=== PATIENT | female | born 1960 | race Caucasian/White ===

== ENCOUNTER 2023-09-24 12:49 | Inpatient (IN) ==
--- NOTE | 2023-09-24 12:58 | ED Triage Note ---
Date of Service September 24, 2023 Provider in Triage Author: Kraig Florence History of Present Illness This patient was briefly evaluated while in triage. An abbreviated physical exam was performed. This patient is a 62-year-old Female who presents to the ED for evaluation of ongoing abdominal pain, back pain and numbness radiating into her left leg. The patient was seen by a spine surgeon last year for her back. Patient did not undergo any epidural steroid injections or therapy for her back. The patient reports that she was recently seen for possible diverticulitis. She was awaiting a colonoscopy study on 10/20/2023. Patient also reports some tingling of her face, with questionable history of Mnire's disease. Patient reports that she does get frequent coldness of her extremities. Patient denies any facial droop, drooling or difficulty with speech/swallowing. Patient reports that it feels like her face is "spastic". Physical Exam CONSTITUTIONAL: Healthy and well nourished. Alert and oriented X 3. GCS 15. HEENT: No facial droop or drooling. No conjunctival injection. RESPIRATORY: Clear to auscultation bilaterally with no wheezing, crackles, rhonchi or stridor. CARDIOVASCULAR: Regular rate and rhythm with no murmurs, rubs or gallops. GASTROINTESTINAL: Bowel sounds present in all quadrants. Patient has minimal tenderness to palpation of the left abdomen. MUSCULOSKELETAL: Full range of motion of all joints without discomfort. Equal handgrip bilaterally. Negative sitting left straight leg raise. INTEGUMENTARY: No rash or other significant dermatologic conditions noted. HEMATOLOGIC: No ecchymosis or petechiae. PSYCHIATRIC: Positive affect. NEUROLOGIC: Cranial nerves II-XII grossly intact. No focal neurologic deficits noted. No ataxia noted when walking from waiting room to triage. Initial orders for labs and / or imaging were placed and patient was placed in the waiting area until a bed is available. Please see further documentation for the full ED course.
[2023-09-24 14:02] LABS: Basophils # (auto) 0.12 K/uL (0.00-0.20); Basophils % (auto) 1.5 %; Eosinophils # (auto) 0.12 K/uL (0.00-0.50); Eosinophils % (auto) 1.5 %; Hemoglobin 16.4 g/dl (12.0-16.0); Immature Granulocytes # (auto) 0.02 K/uL (0.01-0.20); Immature Granulocytes % (auto) 0.2 %; Lymphocytes # (auto) 2.58 K/uL (1.20-3.40); Mean Corpuscular Hemoglobin 29.5 pg (25.0-34.0); Mean Corpuscular Hgb Conc 32.8 g/dL (32.0-36.0); Mean Corpuscular Volume 90.1 fL (80.0-100.0); Mean Platelet Volume 9.4 fL (9.4-12.4); Monocytes # (auto) 0.45 K/uL (0.11-0.59); Monocytes % (auto) 5.6 %; Neutrophils # (auto) 4.78 K/uL (1.40-6.50); Neutrophils % (auto) 59.2 %; Platelet Count 355 K/uL (130-400); RDW Coefficient of Variation 13.2 % (11.5-14.5); RDW Standard Deviation 43.8 fL (36.4-46.3); Red Blood Count 5.55 M/uL (4.20-5.40); White Blood Count 8.07 K/ul (4.8-10.8)
[2023-09-24 14:24] LABS: Troponin I High Sensitivity 4.9 pg/ml (0-14)
[2023-09-24 14:30] LABS: Prothrombin Time 10.8 Seconds (9.0-12.0)
[2023-09-24 14:33] LABS: Thyroid Stimulating Hormone 0.657 uIu/ml (0.300-4.500)
[2023-09-24 14:34] LABS: Albumin Globulin Ratio 1.4 (0.9-2); Albumin Level 4.5 gm/dl (3.4-5.0); Bilirubin,Total 0.6 mg/dl (0.2-1.0); Calcium 9.9 mg/dl (8.6-10.3); Creatinine Clr Calc Pharmacy 71.2 ml/min; Est GFR (African American) 90.3 ml/min; Est GFR (Non-African American) 77.9 ml/min; Globulin 3.3 gm/dl (2.5-4.0); Magnesium 2.2 mg/dl (1.7-2.4); Potassium 3.8 mmol/L (3.5-5.1); Total Protein 7.8 gm/dl (6.0-8.3)
--- NOTE | 2023-09-24 14:39 | XRay Report ---
XR chest 1V not portable CLINICAL HISTORY: weakness COMPARISON STUDY: Chest CT March 02, 2012. Chest radiograph June 28, 2013. FINDINGS: Lung volumes are normal. Lungs are clear. There is no pneumothorax or pleural effusion. Car diac size is normal. Mediastinal contours are normal. There is no evidence for pulmonary edema. IMPRESSION: No acute cardiopulmonary findings. ACT 112: Negative or not required by law. Electronically signed by: Rui Steven M.D. 09/24/2023 2:38 PM
--- NOTE | 2023-09-24 14:59 | CT Scan Report ---
CT head/brain wo con CLINICAL HISTORY: 62 years-old Female with L facial tingling. Acute stroke like symptoms TECHNIQUE: Multiple axial CT images of the head were obtained without contrast. A dose lowering tech nique was utilized adhering to the principles of ALARA. CT DOSE: 547.75 mGy.cm COMPARISON: Brain MRI 06/17/2020 FINDINGS: No acute intracranial hemorrhage, midline shift, intracranial mass, hydrocephalus, territorial ischem ia or abnormal extra-axial collection. Involutional changes. Mild white matter hypodensities are nons pecific and may represent early changes of chronic microvascular ischemic disease. The calvarium is intact. The paranasal sinuses, mastoid air cells, and middle ear cavities are clear . IMPRESSION: No acute intracranial abnormality identified. ACT 112: Negative or not required by law. The above report was generated using voice recognition software. It may contain grammatical, syntax o r spelling errors. Electronically signed by: Devin Heath M.D. 09/24/2023 2:57 PM
--- NOTE | 2023-09-24 16:15 | Emergency Department Note ---
History of Present Illness General Chief complaint: Back Injury/Pain Stated complaint: BACK PAINS, FACIAL AND LEG NUMBNESS Time Seen by Provider: 09/24/23 15:58 History of Present Illness Maximum Pain Intensity: 6 This is a 62-year-old female that presents to the emergency department via private vehicle accompanied by friend with complaint of "back pain, left leg cold, numb, facial numbness". The patient states that last evening around 10 PM she noted that the left leg was cold and then numb. It was not weak and still able to support her. She notes that when she warmed the leg, the numbness resolved. She also noted that today there was some numbness in the face initially on the left side described as a tightness that then was also on the right side. She does note intermittent fever/chills over the past few years. She also notes several years ago she had something similar on the left side of the face. She has never had the left leg symptoms that she experienced yesterday. She denies any leg symptoms at the present time. She notes that while in CT undergoing workup today she noted the tightening on the left side of face and right side of the face with numbness but that also has resolved. At the present time, there are no symptoms. She denies any chest pain or shortness of breath. Home Medications Medication Instructions Recorded Confirmed Type amlodipine 5 mg tablet 5 mg PO PM 05/12/19 09/24/23 History losartan 25 mg tablet 25 mg PO PM 12/07/22 09/24/23 History albuterol sulfate 90 mcg/actuation 2 puff inhalation Q4H PRN SOB 08/28/23 09/24/23 History aerosol inhaler dicyclomine 10 mg capsule 10 mg PO QID PRN abdominal pain 09/20/23 09/24/23 Rx #120 caps atorvastatin 20 mg tablet 20 mg PO PM 09/24/23 09/24/23 History calcium carbonate 200 mg PO QDL 09/24/23 09/24/23 History fluticasone propionate 50 2 spray intranasal HS 09/24/23 09/24/23 History mcg/actuation nasal spray,suspension Allergies Allergy/AdvReac Type Severity Reaction Status Date / Time doxycycline Allergy Unknown Unknown Unverified 09/24/23 20:03 latex Allergy Unknown Blister Verified 09/24/23 20:03 sulfamethoxazole Allergy Unknown Rash Unverified 09/24/23 20:03 [From Bactrim] trimethoprim [From Bactrim] Allergy Unknown Rash Unverified 09/24/23 20:03 amoxicillin Allergy Diarrhea Verified 09/24/23 20:03 Sulfa (Sulfonamide Allergy Rash Verified 09/24/23 20:03 Antibiotics) adhesive AdvReac Intermediate BLISTERS Verified 09/24/23 20:03 meperidine AdvReac Unknown N/V Verified 09/24/23 20:03 Past Med/Surg History Medical History (Updated 09/25/23 @ 03:55 by Irwin Ku PA-C) Degenerative disc disease CERVICAL AREA Osteoarthritis IBS (irritable bowel syndrome) Prediabetes DIET CONTROL Depression Anxiety Transient ischemic attack (TIA) JUST FOUND ON MRI BUT UNSURE OF WHEN THEY WOULD HAVE BEEN > MRI 8 YRS AGO Cardiac murmur NO ISSUES Hypertension Hyperlipidemia Chronic obstructive pulmonary disease NO INHALERS > LAST EXAC YRS AGO Surgical History History of cataract surgery Hx of lumpectomy LEFT History of dilatation and curettage Hx of fracture of leg WITH REPAIR > METAL PRESENT RIGHT LEG History of colonoscopy Hx of hernia repair History of cholecystectomy Family History Mother Hearing loss Hypertension Family/Other No problems noted. 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 Beliefs That Will Affect Care: None marital status: Single Current Living Situation: Family Current Living Situation Comment: Home with son current occupational status: retired How many Children do You have: 0 Feels Safe at Home: Yes Safety Concerns: Feels Safe At This Time Assistive Devices: Cane Review of Systems A total of 10 systems reviewed and were otherwise negative Physical Exam Vital Signs Vital Signs - 24 hr 09/24/23 12:52 09/24/23 15:00 09/24/23 19:18 Temperature 36.1 C L Temperature Source Temporal Artery Scan Pulse Rate 67 Pulse Rate [Left Finger] 77 50 L Pulse Rhythm [Left Finger] Regular Pulse Strength [Left Finger] Normal Respiratory Rate 15 18 17 Respiratory Effort / Characteristics Non-Labored Spontaneous Non-Labored Spontaneous Respiratory Depth Normal Normal Respiratory Pattern Regular Blood Pressure 178/120 H Blood Pressure [Left Arm] 166/89 H 161/82 H Blood Pressure Mean 139 Blood Pressure Mean [Left Arm] 114 108 Blood Pressure Position [Left Arm] Sitting Sitting Pulse Oximetry 96 98 98 Oxygen Delivery Method Room Air Room Air Sepsis Recent Fever Within 48 Hours No Sepsis New/Unexplained Change in Mental Status No Sepsis Action Taken by Nursing No Action Required 09/24/23 19:58 Temperature Temperature Source Pulse Rate Pulse Rate [Left Finger] Pulse Rhythm [Left Finger] Pulse Strength [Left Finger] Respiratory Rate Respiratory Effort / Characteristics Respiratory Depth Respiratory Pattern Blood Pressure Blood Pressure [Left Arm] Blood Pressure Mean Blood Pressure Mean [Left Arm] Blood Pressure Position [Left Arm] Pulse Oximetry Oxygen Delivery Method Room Air Sepsis Recent Fever Within 48 Hours Sepsis New/Unexplained Change in Mental Status Sepsis Action Taken by Nursing VITAL SIGNS - Vital signs and nursing notes were reviewed. Stable and afebrile. GENERAL -62-year-old female appearing her stated age who is in no acute distress. Communicates well with provider and answers questions appropriately. SKIN - Without rashes. No meningeal or petechial rash. Skin overlying the body is unremarkable. No rashes. HEAD - NC/AT. EYES - PERRL with EOMI bilaterally. Sclera anicteric. EARS - No deformities of external structures noted on gross examination bilaterally. NOSE - Midline and without cyanosis. No epistaxis or purulent drainage noted. MOUTH/OROPHARYNX - Without perioral cyanosis. Buccal mucosa pink and moist and without leukoplakia. Tongue midline with equal elevation of palate bilaterally. No tonsillar hypertrophy, erythema, or exudates noted. Fair dentition noted. No drooling, stridor, trismus, wheezing or tripoding. Normal phonation. NECK - Neck with FROM. No nuchal rigidity. LUNGS - Chest wall symmetric without accessory muscle use, intercostals retractions, or central cyanosis. Normal vesicular breath sounds CTA B/L. No wheezes, rales, or rhonchi appreciated. CARDIAC - RRR with S1/S2. No murmur, rubs, or gallops appreciated. ABDOMEN - Abdominal contour normal without pulsations or visible masses. BS normoactive all four quadrants. No tenderness, palpable masses, hepatosplenomegaly, or ascites noted. EXTREMITIES - No clubbing or peripheral cyanosis. No pretibial edema present. Left lower extremities are symmetric in temperature. Dorsalis pedis pulse is within normal limits bilaterally. +5/5 strength noted in UE/LE bilaterally. NEUROLOGIC - Cranial nerves II through XII grossly intact. Sensory intact to light touch throughout. Patellar reflexes +2/4. PSYCH - A&Ox3 and cooperates fully with examiner. Pt is very pleasant and interacts well with examiner. Course Administered Medications Amlodipine Besylate (Amlodipine Besylate 5 Mg Tab) 5 mg PO PM LIZ Stop: 10/24/23 23:43 Last Admin: 09/25/23 00:12 Dose: 5 mg Documented By: Atorvastatin Calcium (Atorvastatin 20 Mg Tab) 20 mg PO PM LIZ Stop: 10/24/23 23:43 Last Admin: 09/25/23 00:13 Dose: 20 mg Documented By: Heparin Sodium/Dextrose (Heparin Sodium/Dextrose) 25,000 units in 500 mls @ 23 mls/hr IV .[id number] LIZ; Protocol Stop: 10/24/23 20:59 Last Admin: 09/24/23 21:12 Dose: 1,150 units/hr, 23 mls/hr Documented By: TREVOR Co-signed By: Losartan Potassium (Losartan Potassium 25 Mg Tab) 25 mg PO PM LIZ Stop: 10/24/23 23:43 Last Admin: 09/25/23 00:13 Dose: 25 mg Documented By: Nicotine (Nicotine 14 Mg/24 Hr Patch) 14 mg TD HS LIZ Stop: 10/24/23 20:59 Last Admin: 09/24/23 21:15 Dose: 14 mg Documented By: TREVOR Discontinued Medications Diazepam (Diazepam 5 Mg/Ml 10ml Vial) 5 mg IV NOW STA Stop: 09/24/23 18:23 Last Admin: 09/24/23 18:37 Dose: 5 mg Documented By: ELIZABETH Heparin Sodium (Porcine) (Heparin Sod (Porcine) 1000 Unit/Ml) 5,000 units IV NOW ONE Stop: 09/24/23 20:56 Last Admin: 09/24/23 21:11 Dose: 5,000 units Documented By: TREVOR Co-signed By: Ioversol (Optiray 320 125ml) 115 ml IV ONCE ONE Stop: 09/24/23 20:49 Last Admin: 09/24/23 20:49 Dose: 115 ml Documented By: AURELIANO Medical Decision Making Laboratory Data 09/24/23 13:45 09/24/23 13:45 Lab Results 09/24/23 Range/Units 13:45 WBC 8.07 (4.8-10.8) K/ul RBC 5.55 H (4.20-5.40) M/uL Hgb 16.4 H (12.0-16.0) g/dl Hct 50.0 H (37.0-47.0) % MCV 90.1 (80.0-100.0) fL MCH 29.5 (25.0-34.0) pg MCHC 32.8 (32.0-36.0) g/dL RDW Std Deviation 43.8 (36.4-46.3) fL RDW Coeff of Faustino 13.2 (11.5-14.5) % Plt Count 355 (130-400) K/uL MPV 9.4 (9.4-12.4) fL Immature Gran % (Auto) 0.2 % Neut % (Auto) 59.2 % Lymph % (Auto) 32.0 % [place] % (Auto) 5.6 % Eos % (Auto) 1.5 % Baso % (Auto) 1.5 % Neut # (Auto) 4.78 (1.40-6.50) K/uL Lymph # (Auto) 2.58 (1.20-3.40) K/uL [place] # (Auto) 0.45 (0.11-0.59) K/uL Eos # (Auto) 0.12 (0.00-0.50) K/uL Baso # (Auto) 0.12 (0.00-0.20) K/uL Immature Gran # (Auto) 0.02 (0.01-0.20) K/uL PT 10.8 (9.0-12.0) Seconds INR 1.0 (0.9-1.1) Sodium 140 (136-145) mmol/L Potassium 3.8 (3.5-5.1) mmol/L Chloride 105 (98-107) mmol/L Carbon Dioxide 28 (21-32) mmol/L Anion Gap 7 (3-11) BUN 8 (6-23) mg/dl Creatinine 0.80 (0.6-1.2) mg/dl Est Cr Clr Drug Dosing 71.2 ml/min Est GFR ( Amer) 90.3 ml/min Est GFR (Non-Af Amer) 77.9 ml/min BUN/Creatinine Ratio 10.0 (10-20) Glucose 102 H (70-99(Fasting)) mg/dl Calcium 9.9 (8.6-10.3) mg/dl Magnesium 2.2 (1.7-2.4) mg/dl Total Bilirubin 0.6 (0.2-1.0) mg/dl AST 20 (13-39) U/L ALT 27 (7-52) U/L Alkaline Phosphatase 147 H (34-104) U/L Troponin I High Sens 4.9 (0-14) pg/ml Total Protein 7.8 (6.0-8.3) gm/dl Albumin 4.5 (3.4-5.0) gm/dl Globulin 3.3 (2.5-4.0) gm/dl Albumin/Globulin Ratio 1.4 (0.9-2) TSH 0.657 (0.300-4.500) uIu/ml Imaging Data Radiologist's Impression: Duplex Scan Lower Extremity Artery 09/24/23 16:10 US arterial duplex LE LT HISTORY: 62 years-old Female L leg numb and cold per patient acute pain and swelling of left lower leg COMPARISON: None TECHNIQUE: Multiple real-time sonographic images of the left lower extremity arterial structures were obtained assessing grayscale appearance, color and spectral flow FINDINGS: Atherosclerosis. Patent common femoral artery with triphasic waveforms. Patent profunda femoris artery. High-grade stenosis with near occlusion of the superficial femoral artery proximal to mid portions with blunted monophasic waveforms. Peak systolic velocities in the midportion of the vessel measures 22 cm/s. Additional blunted monophasic waveforms of the left lower leg. No flow identified within the dorsalis pedis artery. IMPRESSION: 1. Atherosclerosis with blunted monophasic waveforms as above. 2. No arterial flow identified within the dorsalis pedis artery. ACT 112: Negative or not required by law. The above report was generated using voice recognition software. It may contain grammatical, syntax or spelling errors. Electronically signed by: Devin Heath M.D. 09/24/2023 6:42 PM Lumbar Spine X-Ray 09/24/23 16:10 XR lumbar spine min 4V routine HISTORY: 62 years-old Female Low back pain acute low back pain COMPARISON: CT 08/28/2023 TECHNIQUE: 5 views of the lumbar spine FINDINGS: Cholecystectomy. Nonobstructive bowel gas pattern. No acute fracture, subluxation or endplate erosion. Mild multilevel intervertebral disc space narrowing and spondylotic spurring with moderate facet arthrosis. Atherosclerosis of the aorta. IMPRESSION: No acute fracture or subluxation. ACT 112: Negative or not required by law. The above report was generated using voice recognition software. It may contain grammatical, syntax or spelling errors. Electronically signed by: Devin Heath M.D. 09/24/2023 5:23 PM Brain MRI 09/24/23 17:19 MR brain wo con HISTORY: 62 years-old Female L leg numbness, facial numbness acute strokelike symptoms COMPARISON: Head CT of same day, brain MRI 06/17/2020 TECHNIQUE: Multiplanar multisequence MRI of the brain was obtained without IV contrast. FINDINGS: No restricted diffusion. Midline structures appear unremarkable. Degenerative changes of the imaged cervical spine. No acute intracranial hemorrhage, midline shift, abnormal extra-axial collection, hydrocephalus or intra-axial mass. Cerebral venous sinuses and major arterial flow voids appear patent. Skull, orbits and soft tissues are unremarkable. Unchanged appearance of the left maxillary bone. Prior bilateral lens repair. Scattered T2/FLAIR hyperintense foci again noted within the periventricular and subcortical white matter of the cerebral hemispheres. Stable dominant 12 mm T2 hyperintense focus in the left frontal lobe. There is new abnormal signal within the central susy. IMPRESSION: 1. No acute intracranial abnormality. No acute or subacute infarct. 2. Scattered T2/FLAIR hyperintense foci within the white matter of the cerebral hemispheres redemonstrated with new areas of increased signal within the central susy. Findings are suspicious for a demyelinating process such as multiple sclerosis. ACT 112: Negative or not required by law. The above report was generated using voice recognition software. It may contain grammatical, syntax or spelling errors. Electronically signed by: Devin Heath M.D. 09/24/2023 7:17 PM Aorta w/Runoff CTA 09/24/23 20:40 Exam(s): CTA ABDOMEN + PELVIS, CTA EXTREMITY LEFT LOWER, CTA EXTREMITY RIGHT LOWER IV Amt: OPTIRAY [id number] EXAM: CT Angiography Abdomen and Pelvis With Intravenous Contrast CLINICAL HISTORY: Reason for exam: concern for LLE arterial occlusion. TECHNIQUE: Axial computed tomographic angiography images of the abdomen and pelvis with intravenous contrast. CTDI is 19 mGy and DLP is 1495.3 mGy-cm. Automated exposure control was utilized for the study. A dose lowering technique was utilized adhering to the principles of ALARA. MIP reconstructed images were created and reviewed. COMPARISON: No relevant prior studies available. FINDINGS: VASCULATURE: Aorta: No acute findings. No abdominal aortic aneurysm. No dissection. Celiac trunk and mesenteric arteries: There is 70% stenosis seen in the region of the splenic artery from the aorta 50% stenosis seen at the region of the common hepatic artery from the aorta.. Patent superior mesenteric and inferior mesenteric arteries. Renal arteries: No acute findings. No occlusion or significant stenosis. Iliac arteries: No acute findings. No occlusion or significant stenosis. Lung bases: Unremarkable. No mass. No consolidation. ABDOMEN: Liver: Fatty liver. Gallbladder and bile ducts: Cholecystectomy. No ductal dilation. Pancreas: Unremarkable. No ductal dilation. No mass. Spleen: Unremarkable. No splenomegaly. Adrenals: Unremarkable. No mass. Kidneys and ureters: Unremarkable. No hydronephrosis. No solid mass. Stomach and bowel: Unremarkable. No obstruction. No mucosal thickening. PELVIS: Appendix: No findings to suggest acute appendicitis. Bladder: Unremarkable. No mass. Reproductive: Unremarkable as visualized. ABDOMEN and PELVIS: Intraperitoneal space: Unremarkable. No significant fluid collection. No free air. Bones/joints: No acute fracture. No dislocation. Soft tissues: Unremarkable. Lymph nodes: Unremarkable. No enlarged lymph nodes. IMPRESSION: No evidence of aortoiliac arterial occlusion. EXAM: CT Angiography of the Left Lower Extremity With Intravenous Contrast CLINICAL HISTORY: Reason for exam: concern for LLE arterial occlusion. TECHNIQUE: Axial computed tomographic angiography images of the left lower extremity with intravenous contrast. Automated exposure control was utilized for the study. A dose lowering technique was utilized adhering to the principles of ALARA. MIP reconstructed images were created and reviewed. COMPARISON: No relevant prior studies available. FINDINGS: VASCULATURE: Left femoral/popliteal arteries: Left superficial femoral artery is occluded. Left common femoral artery is patent. The left popliteal artery is reconstituted through collateral circulation. Left calf/foot arteries: No acute findings. No occlusion or significant stenosis. LOWER EXTREMITY: Bones/joints: No acute fracture. No dislocation. Soft tissues: Unremarkable. No abnormal contrast enhancement. IMPRESSION: Completely occluded left superficial femoral artery with reconstitution of the left popliteal artery through collateral circulation. 3 vessel runoff in the left leg EXAM: CT Angiography of the Right Lower Extremity With Intravenous Contrast CLINICAL HISTORY: Reason for exam: concern for LLE arterial occlusion. TECHNIQUE: Axial computed tomographic angiography images of the right lower extremity with intravenous contrast. Automated exposure control was utilized for the study. A dose lowering technique was utilized adhering to the principles of ALARA. MIP reconstructed images were created and reviewed. COMPARISON: No relevant prior studies available. FINDINGS: VASCULATURE: Right femoral/popliteal arteries: No acute findings. No occlusion or significant stenosis. Right calf/foot arteries: No acute findings. No occlusion or significant stenosis. LOWER EXTREMITY: Bones/joints: No acute fracture. No dislocation. Soft tissues: Unremarkable. No abnormal contrast enhancement. IMPRESSION: No arterial occlusion in the right lower extremity Electronically signed by: Evans Zapata MD 09/24/23 23:15 PM XR chest 1V not portable CLINICAL HISTORY: weakness COMPARISON STUDY: Chest CT March 02, 2012. Chest radiograph June 28, 2013. FINDINGS: Lung volumes are normal. Lungs are clear. There is no pneumothorax or pleural effusion. Cardiac size is normal. Mediastinal contours are normal. There is no evidence for pulmonary edema. IMPRESSION: No acute cardiopulmonary findings. ACT 112: Negative or not required by law. Electronically signed by: Rui Steven M.D. 09/24/2023 2:38 PM MDM Narrative Patient was seen and evaluated as above in room D03a. Review was performed of triage nursing notes and vital signs. I did review pertinent previous visits and patient history. After obtaining a thorough history and physical examination the above work up was performed. Patient presents to us today for evaluation of left leg numbness/cold sensation and then also left-sided facial numbness/tight sensation. This is intermittent. No symptoms at the present time. Options of care were discussed with the patient. Patient was seen during a period of elevated volume and acuity in the emergency department and already had some testing resulted. Labs reveal no leukocytosis. Minor elevation of hemoglobin at 16.4. Coags normal. No emergent metabolic disturbance. Glucose 102. Alk phos 147. TSH reveals euthyroid state. Troponin negative. Urinalysis negative. EKG: Per my interpretation EKG reveals sinus bradycardia rate of 58 bpm. QTc 429. QRS 88. No ST elevation. Lumbar spine x-ray was negative. Chest x-ray was negative. Left lower extremity Doppler study reveals atherosclerosis with blunted monophasic waveforms and no arterial flow identified within the dorsalis pedis artery. I will note that on my assessment there is a palpable left dorsalis pedis pulse and the left lower extremity is appropriately warm and symmetric in temperature to the right. Patient notes resolution of the left leg numbness and cold sensation at the present time. MRI of the brain was obtained following negative non con head cT but patient did require a mild anxiolytic therefore was given IV Valium. MRI revealing no acute abnormality however scattered T2/FLAIR hyperintense foci within the white matter of the cerebral hemispheres redemonstrated with new areas of increased signal within the central susy. Findings are suspicious for demyelinating process such as multiple sclerosis per radiologist. At this time with the patient's intermittent left leg subjective numbness/cold sensation in addition to his abnormal imaging today we will proceed with further evaluation and management in the inpatient setting. It is important note that upon multiple reassessments the patient's left leg continue to be appropriately warm and well-perfused. No evidence of acute emergent arterial compromise on my exam however further evaluation and management will be needed. Case discussed with the hospitalist service. Please refer to further documentation regarding her stay. Case was discussed with the attending physician. In the evaluation and treatment of this patient the following differential diagnoses were entertained: Arterial occlusion, CVA, TIA, demyelinating process, infection, among others. Impression & Plan Left leg numbness, Abnormal brain MRI, Facial paresthesia, Abnormal ultrasound of lower extremity Discharge Plan Visit Data Chief Complaint: Back Injury/Pain Stated Complaint: BACK PAINS, FACIAL AND LEG NUMBNESS ED Provider: Ravi Keith ED Midlevel Provider: Irwin Ku Discharge Problem: Left leg numbness, Abnormal brain MRI, Facial paresthesia, Abnormal ultrasound of lower extremity Patient Disposition: Admitted As Inpatient Condition: Good Discharge Instructions Interventions: ED Discharge Assessment Last Done: 09/24/23 23:44
--- NOTE | 2023-09-24 17:26 | XRay Report ---
XR lumbar spine min 4V routine HISTORY: 62 years-old Female Low back pain acute low back pain COMPARISON: CT 08/28/2023 TECHNIQUE: 5 views of the lumbar spine FINDINGS: Cholecystectomy. Nonobstructive bowel gas pattern. No acute fracture, subluxation or endplate erosion . Mild multilevel intervertebral disc space narrowing and spondylotic spurring with moderate facet ar throsis. Atherosclerosis of the aorta. IMPRESSION: No acute fracture or subluxation. ACT 112: Negative or not required by law. The above report was generated using voice recognition software. It may contain grammatical, syntax o r spelling errors. Electronically signed by: Devin Heath M.D. 09/24/2023 5:23 PM
[2023-09-24] MEDS: diazePAM 5 MG/ML 10ML VIAL IV STA (18:37)
--- NOTE | 2023-09-24 18:43 | Ultrasound Report ---
US arterial duplex LE LT HISTORY: 62 years-old Female L leg numb and cold per patient acute pain and swelling of left lower l eg COMPARISON: None TECHNIQUE: Multiple real-time sonographic images of the left lower extremity arterial structures were obtained assessing grayscale appearance, color and spectral flow FINDINGS: Atherosclerosis. Patent common femoral artery with triphasic waveforms. Patent profunda femoris arter y. High-grade stenosis with near occlusion of the superficial femoral artery proximal to mid portions with blunted monophasic waveforms. Peak systolic velocities in the midportion of the vessel measures 22 cm/s. Additional blunted monophasic waveforms of the left lower leg. No flow identified within th e dorsalis pedis artery. IMPRESSION: 1. Atherosclerosis with blunted monophasic waveforms as above. 2. No arterial flow identified within the dorsalis pedis artery. ACT 112: Negative or not required by law. The above report was generated using voice recognition software. It may contain grammatical, syntax o r spelling errors. Electronically signed by: Devin Heath M.D. 09/24/2023 6:42 PM
--- NOTE | 2023-09-24 19:19 | Magnetic Resonance Report ---
MR brain wo con HISTORY: 62 years-old Female L leg numbness, facial numbness acute strokelike symptoms COMPARISON: Head CT of same day, brain MRI 06/17/2020 TECHNIQUE: Multiplanar multisequence MRI of the brain was obtained without IV contrast. FINDINGS: No restricted diffusion. Midline structures appear unremarkable. Degenerative changes of the imaged c ervical spine. No acute intracranial hemorrhage, midline shift, abnormal extra-axial collection, hydr ocephalus or intra-axial mass. Cerebral venous sinuses and major arterial flow voids appear patent. Skull, orbits and soft tissues a re unremarkable. Unchanged appearance of the left maxillary bone. Prior bilateral lens repair. Scatte red T2/FLAIR hyperintense foci again noted within the periventricular and subcortical white matter of the cerebral hemispheres. Stable dominant 12 mm T2 hyperintense focus in the left frontal lobe. Ther e is new abnormal signal within the central susy. IMPRESSION: 1. No acute intracranial abnormality. No acute or subacute infarct. 2. Scattered T2/FLAIR hyperintense foci within the white matter of the cerebral hemispheres redemonst rated with new areas of increased signal within the central susy. Findings are suspicious for a demye linating process such as multiple sclerosis. ACT 112: Negative or not required by law. The above report was generated using voice recognition software. It may contain grammatical, syntax o r spelling errors. Electronically signed by: Devin Heath M.D. 09/24/2023 7:17 PM
--- NOTE | 2023-09-24 20:22 | History & Physical Report ---
Date of Service September 24, 2023 Assessment & Plan (1) Superficial femoral artery occlusion: Plan: -Admit to med/tele -Currently stable and asymptomatic at the time of admission -Experienced LLE paresthesias and cold sensation last night around 10pm which did not improve until ED arrival -LLE arterial duplex notes High-grade stenosis with near occlusion of the superficial femoral artery proximal to mid portions with blunted monophasic waveforms. -Patient's LLE is warm to the touch and without discoloration, but the LLE dorsalis pedis pulse is noticeably weaker compared to the RLE -Will start patient on a weight past heparin drip with bolus now -Will obtain stat CTA abdominal aorta w/run off for further evaluation -As patient's symptoms have currently resolved and she has an intact DP pulse, will place a routine vascular surgery consult at this time -If CTA findings are worrisome then would reach out to vascular surgery overnight -Continue heparin drip for DVT PPX -HH diet, NPO at midnight in case OR would be needed -Tylenol and morphine for pain -AM CBC, CMP, mag, PT/INR (2) Facial paresthesia: Plan: -Patient has been experiencing intermittent, BL facial paresthesias since last night at approximately 10 pm -No focal neuro defects on exam -CT of the head/brain wo con was read as negative for acute findings -MRI of the brain obtained in the ED was negative for acute intracranial abnormality but did show " Scattered T2/FLAIR hyperintense foci within the white matter of the cerebral hemispheres redemonstrated with new areas of increased signal within the central susy. Findings are suspicious for a demyelinating process such as multiple sclerosis.". -Symptoms have currently resolved -Patient had similar findings on MRI of the brain approximately 4 years ago -Will consult Neurology to evaluate while admitted but will hold treatment for now until they see her tomorrow (3) Hypertension: Plan: -Currently stable -Continue losartan and amlodipine (4) Hyperlipidemia: Plan: -Continue atorvastatin (5) Chronic obstructive pulmonary disease: Plan: -Currently stable on RA and with clear lung sounds -Incentive spirometry, flutter therapy -PRN albuterol ordered (6) Tobacco abuse: Plan: -Continue to stress cessation -Nicotine patch ordered Plan The patient was discussed with Dr. Cifuentes at the time of the admission History of Present Illness Chief Complaint: LLE paresthesias, BL facial numbness Primary Care Provider: Kam Long DO Diana is a 62 year old female with a PMH significant for HTN, hyperlipidemia, previous TIA, and aortic valve stenosis who presented to the [facility] ED on 09/24/23 with complaints of intermittent cold sensation of the LLE and intermittent BL facial paresthesias. She was noted to be hypertensive at 178/120 and bradycardic with HR in the 50's but otherwise stable. Labs including CBC, CMP, and TSH were unremarkable. Chest xray, xray of the lumbar spine, and CT of the head/brain wo con were read as negative for acute findings. Arterial US of the LLE was read as "1. Atherosclerosis with blunted monophasic waveforms as above. 2. No arterial flow identified within the dorsalis pedis artery.". MRI of the brain wo con was read as "1. No acute intracranial abnormality. No acute or subacute infarct. 2. Scattered T2/FLAIR hyperintense foci within the white matter of the cerebral hemispheres redemonstrated with new areas of increased signal within the central susy. Findings are suspicious for a demyelinating process such as multiple sclerosis.". Prior to admission the patient was given 5 mg IV Diazepam. At the time of the exam the patient was lying in bed in no acute distress. She states that she has had issues with what she describes as restless legs, left worse than right, for "years". She has been smoking cigarettes for 40 years, up until approximately 5 years ago she was smoking 2 PPD. Over the past 5 years she has been smoking 1/2 PPD. Last night she started to developed paresthesias and cold sensation in the LLE. This started around 10 pm while she was laying on the couch. She denies pain or weakness in the LLE when this occurred. This last for the entirety of the night but improved upon arrival to the ED. At the same time that her LLE symptoms began she experienced what felt like migraine like tension on the BL temples with associated intermittent paresthesias on the face. These symptoms have not been constant. She did notice them return for a short time when she was in the CT scanner earlier tonight. At the present time she is asymptomatic. She notes that she had an MRI of the brain approximately 4 years ago with some white matter abnormalities. She was seen by Neurology at least once for this but never followed up after. She denies recent chest pain, SOB, cough, changes in vision, hearing, taste, smell, abd pain, nausea, vomiting, diarrhea, dysuria, hematuria, melena, and recent trauma. She denies a hx of major bleeding. She is a full code and would want her Son to make decisions for her if she could not make them herself. Please refer to Dr. Cifuentes's attestation for any changes to the treatment plan Allergies Allergy/AdvReac Type Severity Reaction Status Date / Time doxycycline Allergy Unknown Unknown Unverified 09/24/23 20:03 latex Allergy Unknown Blister Verified 09/24/23 20:03 sulfamethoxazole Allergy Unknown Rash Unverified 09/24/23 20:03 [From Bactrim] trimethoprim [From Bactrim] Allergy Unknown Rash Unverified 09/24/23 20:03 amoxicillin Allergy Diarrhea Verified 09/24/23 20:03 Sulfa (Sulfonamide Allergy Rash Verified 09/24/23 20:03 Antibiotics) adhesive AdvReac Intermediate BLISTERS Verified 09/24/23 20:03 meperidine AdvReac Unknown N/V Verified 09/24/23 20:03 Home Medications Medication Instructions Recorded Confirmed Type amlodipine 5 mg tablet 5 mg PO PM 05/12/19 09/24/23 History losartan 25 mg tablet 25 mg PO PM 12/07/22 09/24/23 History albuterol sulfate 90 mcg/actuation 2 puff inhalation Q4H PRN SOB 08/28/23 09/24/23 History aerosol inhaler dicyclomine 10 mg capsule 10 mg PO QID PRN abdominal pain 09/20/23 09/24/23 Rx #120 caps atorvastatin 20 mg tablet 20 mg PO PM 09/24/23 09/24/23 History calcium carbonate 200 mg PO QDL 09/24/23 09/24/23 History fluticasone propionate 50 2 spray intranasal HS 09/24/23 09/24/23 History mcg/actuation nasal spray,suspension aspirin 81 mg tablet,delayed 81 mg PO DAILY #1 tab 09/25/23 Rx release Past Med/Surg History Medical History Degenerative disc disease CERVICAL AREA Osteoarthritis IBS (irritable bowel syndrome) Prediabetes DIET CONTROL Depression Anxiety Transient ischemic attack (TIA) JUST FOUND ON MRI BUT UNSURE OF WHEN THEY WOULD HAVE BEEN > MRI 8 YRS AGO Cardiac murmur NO ISSUES Hypertension Hyperlipidemia Chronic obstructive pulmonary disease NO INHALERS > LAST EXAC YRS AGO Surgical History History of cataract surgery Hx of lumpectomy LEFT History of dilatation and curettage Hx of fracture of leg WITH REPAIR > METAL PRESENT RIGHT LEG History of colonoscopy Hx of hernia repair History of cholecystectomy Family History Mother Hearing loss Hypertension Family/Other No problems noted. Father Hypertension Grandmother Cancer Aunt Cancer Other Asthma Heart disease No family history of allergies No family history of bleeding disorder Denies family history of Stroke Social History Smoking Status: Current every day smoker Tobacco Type: Cigarettes packs per day: 1; Cigarettes Per Day: 1/3 ppd; Second Hand Exposure: Yes; Do You Dip or Chew Tobacco: No; Hx Alcohol Use: No Hx Substance Use: No Preferred Language: Malagasy Communication Ability: Effective Price Economist Required: No Beliefs That Will Affect Care: None marital status: Single Current Living Situation: Family Current Living Situation Comment: Home with son current occupational status: retired How many Children do You have: 0 Feels Safe at Home: Yes Assistive Devices: Cane Physical Exam Physical Exam: Physical Exam: General: In no acute distress, stated age, chronically ill appearing but non- toxic HEENT: Normocephalic, atraumatic, no scleral icterus, pupils around round, symmetrical, and reactive to light, moist mucus membranes, trachea midline, no thyromegaly Chest/Pulm: No respiratory distress, symmetrical chest expansion, clear breath sounds throughout Cardiac: bradycardic rate, regular rhythm, no murmurs noted Abdomen: Negative for ascites and bruising, normoactive bowel sounds, soft, non-tender to palpation throughout Musculoskeletal: Symmetrical and without signs of acute trauma, upper and lower extremities with full ROM, no atrophy, spasticity, or flaccidity Extremities: Radial and BL LE posterior tibial pusles are intact and symmetrical >LLE DP pulse is faint compared to RLE DP pulse >BL LE's are currently warm to the touch Skin: Both lower extremities are pink in color and without signs of discoloration or mottling Neuro: Alert and oriented to person, place, month, year, and president, no focal defects, CN II-XII tested and intact, negative pronator drift and cerebellar testing BL, no tremors noted >Patient with intact and symmetrical sensation in the BL LE's Psych: No acute distress, calm and cooperative during the exam Results & Data Results & Data Vital Signs (Past 12 Hours) Vital Signs Temp Pulse Pulse Resp BP BP Pulse Ox 09/24/23 19:58 09/24/23 19:18 50 L 17 161/82 H 98 09/24/23 15:00 77 18 166/89 H 98 09/24/23 12:52 36.1 C L 67 15 178/120 H 96 O2 Del Method 09/24/23 19:58 Room Air 09/24/23 19:18 Room Air 09/24/23 15:00 09/24/23 12:52 Room Air Laboratory Results Abnormal lab results 09/24/23 Range/Units 13:45 RBC 5.55 H (4.20-5.40) M/uL Hgb 16.4 H (12.0-16.0) g/dl Hct 50.0 H (37.0-47.0) % Glucose 102 H (70-99(Fasting)) mg/dl Alkaline Phosphatase 147 H (34-104) U/L Diagnostic Findings Chest X-Ray 09/24/23 12:58 XR chest 1V not portable CLINICAL HISTORY: weakness COMPARISON STUDY: Chest CT March 02, 2012. Chest radiograph June 28, 2013. FINDINGS: Lung volumes are normal. Lungs are clear. There is no pneumothorax or pleural effusion. Cardiac size is normal. Mediastinal contours are normal. There is no evidence for pulmonary edema. IMPRESSION: No acute cardiopulmonary findings. ACT 112: Negative or not required by law. Electronically signed by: Rui Steven M.D. 09/24/2023 2:[address] 09/24/23 12:59 CT head/brain wo con CLINICAL HISTORY: 62 years-old Female with L facial tingling. Acute stroke like symptoms TECHNIQUE: Multiple axial CT images of the head were obtained without contrast. A dose lowering technique was utilized adhering to the principles of ALARA. CT DOSE: 547.75 mGy.cm COMPARISON: Brain MRI 06/17/2020 FINDINGS: No acute intracranial hemorrhage, midline shift, intracranial mass, hydrocephalus, territorial ischemia or abnormal extra-axial collection. Involutional changes. Mild white matter hypodensities are nonspecific and may represent early changes of chronic microvascular ischemic disease. The calvarium is intact. The paranasal sinuses, mastoid air cells, and middle ear cavities are clear. IMPRESSION: No acute intracranial abnormality identified. ACT 112: Negative or not required by law. The above report was generated using voice recognition software. It may contain grammatical, syntax or spelling errors. Electronically signed by: Devin Heath M.D. 09/24/2023 2:57 PM Duplex Scan Lower Extremity Artery 09/24/23 16:10 US arterial duplex LE LT HISTORY: 62 years-old Female L leg numb and cold per patient acute pain and swelling of left lower leg COMPARISON: None TECHNIQUE: Multiple real-time sonographic images of the left lower extremity arterial structures were obtained assessing grayscale appearance, color and spectral flow FINDINGS: Atherosclerosis. Patent common femoral artery with triphasic waveforms. Patent profunda femoris artery. High-grade stenosis with near occlusion of the superficial femoral artery proximal to mid portions with blunted monophasic waveforms. Peak systolic velocities in the midportion of the vessel measures 22 cm/s. Additional blunted monophasic waveforms of the left lower leg. No flow identified within the dorsalis pedis artery. IMPRESSION: 1. Atherosclerosis with blunted monophasic waveforms as above. 2. No arterial flow identified within the dorsalis pedis artery. ACT 112: Negative or not required by law. The above report was generated using voice recognition software. It may contain grammatical, syntax or spelling errors. Electronically signed by: Devin Heath M.D. 09/24/2023 6:42 PM Lumbar Spine X-Ray 09/24/23 16:10 XR lumbar spine min 4V routine HISTORY: 62 years-old Female Low back pain acute low back pain COMPARISON: CT 08/28/2023 TECHNIQUE: 5 views of the lumbar spine FINDINGS: Cholecystectomy. Nonobstructive bowel gas pattern. No acute fracture, subluxation or endplate erosion. Mild multilevel intervertebral disc space narrowing and spondylotic spurring with moderate facet arthrosis. Atherosclerosis of the aorta. IMPRESSION: No acute fracture or subluxation. ACT 112: Negative or not required by law. The above report was generated using voice recognition software. It may contain grammatical, syntax or spelling errors. Electronically signed by: Devin Heath M.D. 09/24/2023 5:23 PM Brain MRI 09/24/23 17:19 MR brain wo con HISTORY: 62 years-old Female L leg numbness, facial numbness acute strokelike symptoms COMPARISON: Head CT of same day, brain MRI 06/17/2020 TECHNIQUE: Multiplanar multisequence MRI of the brain was obtained without IV contrast. FINDINGS: No restricted diffusion. Midline structures appear unremarkable. Degenerative changes of the imaged cervical spine. No acute intracranial hemorrhage, midline shift, abnormal extra-axial collection, hydrocephalus or intra-axial mass. Cerebral venous sinuses and major arterial flow voids appear patent. Skull, orbits and soft tissues are unremarkable. Unchanged appearance of the left maxillary bone. Prior bilateral lens repair. Scattered T2/FLAIR hyperintense foci again noted within the periventricular and subcortical white matter of the cerebral hemispheres. Stable dominant 12 mm T2 hyperintense focus in the left frontal lobe. There is new abnormal signal within the central susy. IMPRESSION: 1. No acute intracranial abnormality. No acute or subacute infarct. 2. Scattered T2/FLAIR hyperintense foci within the white matter of the cerebral hemispheres redemonstrated with new areas of increased signal within the central susy. Findings are suspicious for a demyelinating process such as multiple sclerosis. ACT 112: Negative or not required by law. The above report was generated using voice recognition software. It may contain grammatical, syntax or spelling errors. Electronically signed by: Devin Heath M.D. 09/24/2023 7:17 PM ECG Additional Comments: Sinus bradycardia Otherwise normal ECG When compared with ECG of 07-DEC-2022 12:44, (unconfirmed) No significant change was found Code Status & VTE Plan Code Status Full code VTE Prophylaxis Plan VTE Prophylaxis will be ordered: Yes Supervising Physician Co-Signing Physician Notes Attending addendum: I have physically seen this patient, have supervised the ADOLPH's activities, and agree with the H&P unless as otherwise noted. Assessment and Plan: Superficial femoral artery occlusion- Left lower extremity paresthesias and cold sensation that began at 10 PM, and improved slightly for ED arrival Left lower extremity serial duplex with high-grade stenosis with near occlusion of the superficial femoral artery proximal to mid portions with blunted monophasic waveforms Starting weight-based heparin drip standard dosing with bolus Order CTA abdominal aorta with runoff Follow serial laboratories as noted Consult vascular surgery for the a.m. Facial paresthesias- CT head negative for acute findings MRI brain suspicious for demyelinating process such as multiple sclerosis due to increased signal within the central susy Consult to neurology Hypertension- Continuing losartan and amlodipine Hyperlipidemia- Continue atorvastatin Check a fasting blood panel hemoglobin A1c Tobacco abuse- Nicotine patch ordered Cessation counseling PG Care Time/CCT Total # of Minutes Spent Total Time Spent with Patient: Total time spent is greater than 50% in coordination of care (as documented) at patient's floor/unit and/or counseling patient: [place] [address] INT INP/OBS CARE 3/75MIN Patient Type New Medical Decision Making High Complexity Diagnoses Superficial femoral artery occlusion I70.209 Facial paresthesia R20.2 Hypertension I10 Hyperlipidemia E78.5 Chronic obstructive pulmonary disease J44.9 Tobacco abuse Z72.0
[2023-09-24] MEDS ORDERED: Heparin IV Adult Wt-Based Standard w/ INITIAL Bolus Protocol IV SCH (20:42)
[2023-09-24] MEDS ORDERED: ACETAMINOPHEN 325 MG TAB PO PRN (20:47)
[2023-09-24] MEDS ORDERED: MoRPHine SULFATE 2 MG/ML CARP IV PRN (20:47)
[2023-09-24] MEDS: OPTIRAY 320 125ml IV ONE (20:49)
[2023-09-24] MEDS: HEPARIN SOD (PORCINE) 1000 UNIT/ML IV ONE (21:11)
[2023-09-24] MEDS: HEPARIN SODIUM/DEXTROSE 25,000 UNITS/500 ML BAG IV SCH (21:12)
[2023-09-24] MEDS: NICOTINE 14 MG/24 HR PATCH TD SCH (21:15)
--- NOTE | 2023-09-24 23:17 | CT Scan Report ---
Exam(s): CTA ABDOMEN + PELVIS, CTA EXTREMITY LEFT LOWER, CTA EXTREMITY RIGHT LOWER IV Amt: OPTIRAY [id number] EXAM: CT Angiography Abdomen and Pelvis With Intravenous Contrast CLINICAL HISTORY: Reason for exam: concern for LLE arterial occlusion. TECHNIQUE: Axial computed tomographic angiography images of the abdomen and pelvis with intravenous contrast. CTDI is 19 mGy and DLP is 1495.3 mGy-cm. Automated exposure control was utilized for the study. A dose lowering technique was utilized adhering to the principles of ALARA. MIP reconstructed images were created and reviewed. COMPARISON: No relevant prior studies available. FINDINGS: VASCULATURE: Aorta: No acute findings. No abdominal aortic aneurysm. No dissection. Celiac trunk and mesenteric arteries: There is 70% stenosis seen in the region of the splenic artery from the aorta 50% stenosis seen at the region of the common hepatic artery from the aorta.. Patent superior mesenteric and inferior mesenteric arteries. Renal arteries: No acute findings. No occlusion or significant stenosis. Iliac arteries: No acute findings. No occlusion or significant stenosis. Lung bases: Unremarkable. No mass. No consolidation. ABDOMEN: Liver: Fatty liver. Gallbladder and bile ducts: Cholecystectomy. No ductal dilation. Pancreas: Unremarkable. No ductal dilation. No mass. Spleen: Unremarkable. No splenomegaly. Adrenals: Unremarkable. No mass. Kidneys and ureters: Unremarkable. No hydronephrosis. No solid mass. Stomach and bowel: Unremarkable. No obstruction. No mucosal thickening. PELVIS: Appendix: No findings to suggest acute appendicitis. Bladder: Unremarkable. No mass. Reproductive: Unremarkable as visualized. ABDOMEN and PELVIS: Intraperitoneal space: Unremarkable. No significant fluid collection. No free air. Bones/joints: No acute fracture. No dislocation. Soft tissues: Unremarkable. Lymph nodes: Unremarkable. No enlarged lymph nodes. IMPRESSION: No evidence of aortoiliac arterial occlusion. EXAM: CT Angiography of the Left Lower Extremity With Intravenous Contrast CLINICAL HISTORY: Reason for exam: concern for LLE arterial occlusion. TECHNIQUE: Axial computed tomographic angiography images of the left lower extremity with intravenous contrast. Automated exposure control was utilized for the study. A dose lowering technique was utilized adhering to the principles of ALARA. MIP reconstructed images were created and reviewed. COMPARISON: No relevant prior studies available. FINDINGS: VASCULATURE: Left femoral/popliteal arteries: Left superficial femoral artery is occluded. Left common femoral artery is patent. The left popliteal artery is reconstituted through collateral circulation. Left calf/foot arteries: No acute findings. No occlusion or significant stenosis. LOWER EXTREMITY: Bones/joints: No acute fracture. No dislocation. Soft tissues: Unremarkable. No abnormal contrast enhancement. IMPRESSION: Completely occluded left superficial femoral artery with reconstitution of the left popliteal artery through collateral circulation. 3 vessel runoff in the left leg EXAM: CT Angiography of the Right Lower Extremity With Intravenous Contrast CLINICAL HISTORY: Reason for exam: concern for LLE arterial occlusion. TECHNIQUE: Axial computed tomographic angiography images of the right lower extremity with intravenous contrast. Automated exposure control was utilized for the study. A dose lowering technique was utilized adhering to the principles of ALARA. MIP reconstructed images were created and reviewed. COMPARISON: No relevant prior studies available. FINDINGS: VASCULATURE: Right femoral/popliteal arteries: No acute findings. No occlusion or significant stenosis. Right calf/foot arteries: No acute findings. No occlusion or significant stenosis. LOWER EXTREMITY: Bones/joints: No acute fracture. No dislocation. Soft tissues: Unremarkable. No abnormal contrast enhancement. IMPRESSION: No arterial occlusion in the right lower extremity Electronically signed by: Evans Zapata MD 09/24/23 23:15 PM
[2023-09-24] MEDS ORDERED: ALBUTEROL HFA 8 GM INHALER INH PRN (23:44)
[2023-09-25] MEDS: amLODIPine BESYLATE 5 MG TAB PO SCH (00:12)
[2023-09-25] MEDS: LOSARTAN POTASSIUM 25 MG TAB PO SCH (00:13)
[2023-09-25] MEDS: ATORVASTATIN 20 MG TAB PO SCH (00:13)
[2023-09-25 02:05] LABS: Appearance Urine Clear (Clear); Bilirubin Urine Negative (Negative); Blood Urine Negative (Negative); Color Urine Yellow; Glucose Urine UA Negative (Negative); Ketones Urine Negative (Negative); Leukocyte Esterase Urine Negative (Negative); Nitrite Urine Negative (Negative); Protein Urine Negative (Negative); Specific Gravity Urine > 1.045 (1.000-1.030); Urobilinogen Urine Negative (Negative)
[2023-09-25 04:28] LABS: Eosinophils # (auto) 0.17 K/uL (0.00-0.50); Eosinophils % (auto) 1.7 %; Hematocrit (blood only) 43.5 % (37.0-47.0); Hemoglobin 14.1 g/dl (12.0-16.0); Immature Granulocytes # (auto) 0.02 K/uL (0.01-0.20); Immature Granulocytes % (auto) 0.2 %; Lymphocytes # (auto) 3.82 K/uL (1.20-3.40); Lymphocytes % (auto) 39.3 %; Mean Corpuscular Hemoglobin 29.1 pg (25.0-34.0); Mean Corpuscular Hgb Conc 32.4 g/dL (32.0-36.0); Mean Corpuscular Volume 89.9 fL (80.0-100.0); Mean Platelet Volume 9.5 fL (9.4-12.4); Monocytes # (auto) 0.62 K/uL (0.11-0.59); Monocytes % (auto) 6.4 %; Neutrophils # (auto) 4.99 K/uL (1.40-6.50); Neutrophils % (auto) 51.4 %; Platelet Count 293 K/uL (130-400); RDW Coefficient of Variation 13.2 % (11.5-14.5); RDW Standard Deviation 43.8 fL (36.4-46.3); Red Blood Count 4.84 M/uL (4.20-5.40); White Blood Count 9.72 K/ul (4.8-10.8)
[2023-09-25 04:43] LABS: Albumin Globulin Ratio 1.4 (0.9-2); Albumin Level 3.8 gm/dl (3.4-5.0); Bilirubin,Total 0.7 mg/dl (0.2-1.0); Calcium 9.1 mg/dl (8.6-10.3); Est GFR (African American) 93.1 ml/min; Est GFR (Non-African American) 80.3 ml/min; Globulin 2.8 gm/dl (2.5-4.0); Potassium 3.3 mmol/L (3.5-5.1); Total Protein 6.6 gm/dl (6.0-8.3)
[2023-09-25 04:55] LABS: ANTI-Xa, UFH(UnfractionatedHep 0.63 IU/ml (0.3-0.7); INR 1.1 (0.9-1.1); Prothrombin Time 11.5 Seconds (9.0-12.0)
--- NOTE | 2023-09-25 06:43 | Electrocardiogram Report ---
Test Reason : Blood Pressure : / mmHG Vent. Rate : 058 BPM Atrial Rate : 058 BPM P-R Int : 134 ms QRS Dur : 088 ms QT Int : 438 ms P-R-T Axes : 066 085 047 degrees QTc Int : 429 ms Sinus bradycardia Otherwise normal ECG When compared with ECG of 07-DEC-2022 12:44, No significant change was found Confirmed by Maurizio Raya ([id number]) on 09/25/2023 6:43:48 AM Referred By: Confirmed By:Maurizoi Raya
--- NOTE | 2023-09-25 10:05 | Consultation ---
Date of Consultation September 25, 2023 Assessment & Plan (1) Superficial femoral artery occlusion: This 62-year-old female was found to have a left superficial femoral artery occlusion. She does give a history of claudication at long distances which has been going on for some time. There is no evidence of any acute ischemia of the left lower extremity at this point on exam. No intervention is needed at this time. I did recommend that she should stop smoking due to both her Raynaud's and her peripheral vascular disease. I also placed her on 81 mg of aspirin daily. We will see her again in the office in 6 months for follow-up or sooner if her condition worsens. Thank you very much for letting us participate in the care of this patient. History of Present Illness Reason for Consultation: Left superficial femoral artery occlusion Attending Physician: Ramiro Swan MD History of Present Illness This is a 62-year-old female who presented to the emergency department complaining of increased coldness to the left lower extremity and foot. She claims that she cannot warm it up as she could on the right. She denies any pain in the foot at that time or the leg. She did say that her feet. Pale on both sides at that time. She does state that she has a history of Raynaud's. Denies any previous history of ulceration of the legs. She does claim that she the has claudication of her left calf when walking long distances. This has been going on for some time and has not changed. She denies any rest pain in the foot. She has denies any weakness in the left foot. Her other complaints consist of tingling in both sides of her face. She has hypertensive for many years. She does claim she is a borderline diabetic. She does smoke however she has cut down slightly over the last few months. Allergies Allergy/AdvReac Type Severity Reaction Status Date / Time doxycycline Allergy Unknown Unknown Unverified 09/24/23 20:03 latex Allergy Unknown Blister Verified 09/24/23 20:03 sulfamethoxazole Allergy Unknown Rash Unverified 09/24/23 20:03 [From Bactrim] trimethoprim [From Bactrim] Allergy Unknown Rash Unverified 09/24/23 20:03 amoxicillin Allergy Diarrhea Verified 09/24/23 20:03 Sulfa (Sulfonamide Allergy Rash Verified 09/24/23 20:03 Antibiotics) adhesive AdvReac Intermediate BLISTERS Verified 09/24/23 20:03 meperidine AdvReac Unknown N/V Verified 09/24/23 20:03 Home Medications Medication Instructions Recorded Confirmed Type amlodipine 5 mg tablet 5 mg PO PM 05/12/19 09/24/23 History losartan 25 mg tablet 25 mg PO PM 12/07/22 09/24/23 History albuterol sulfate 90 mcg/actuation 2 puff inhalation Q4H PRN SOB 08/28/23 09/24/23 History aerosol inhaler dicyclomine 10 mg capsule 10 mg PO QID PRN abdominal pain 09/20/23 09/24/23 Rx #120 caps atorvastatin 20 mg tablet 20 mg PO PM 09/24/23 09/24/23 History calcium carbonate 200 mg PO QDL 09/24/23 09/24/23 History fluticasone propionate 50 2 spray intranasal HS 09/24/23 09/24/23 History mcg/actuation nasal spray,suspension Patient History Medical History Degenerative disc disease CERVICAL AREA Osteoarthritis IBS (irritable bowel syndrome) Prediabetes DIET CONTROL Depression Anxiety Transient ischemic attack (TIA) JUST FOUND ON MRI BUT UNSURE OF WHEN THEY WOULD HAVE BEEN > MRI 8 YRS AGO Cardiac murmur NO ISSUES Hypertension Hyperlipidemia Chronic obstructive pulmonary disease NO INHALERS > LAST EXAC YRS AGO Surgical History History of cataract surgery Hx of lumpectomy LEFT History of dilatation and curettage Hx of fracture of leg WITH REPAIR > METAL PRESENT RIGHT LEG History of colonoscopy Hx of hernia repair History of cholecystectomy Family History Mother Hearing loss Hypertension Family/Other No problems noted. Father Hypertension Grandmother Cancer Aunt Cancer Other Asthma Heart disease No family history of allergies No family history of bleeding disorder Denies family history of Stroke Social History Smoking Status: Current every day smoker Tobacco Type: Cigarettes packs per day: 1; Cigarettes Per Day: 1/3 ppd; Second Hand Exposure: Yes; Do You Dip or Chew Tobacco: No; Hx Alcohol Use: No Hx Substance Use: No Preferred Language: French Communication Ability: Effective Stationary Fireman Required: No Beliefs That Will Affect Care: None marital status: Single Current Living Situation: Family Current Living Situation Comment: Home with son current occupational status: retired How many Children do You have: 0 Feels Safe at Home: Yes Safety Concerns: Feels Safe At This Time Assistive Devices: Cane Review of Systems Review of Systems: All systems reviewed & are unremarkable except as noted in HPI & below Physical Exam Constitutional: WD/WN, vitals as above Respiratory: normal respiratory effort; no respiratory distress Cardiovascular: RRR, no murmur, no edema Vessels: femoral pulses present (Bilateral); + posterior tibial pulses abnormal (Absent on the left) and + dorsalis pedis pulses abnormal (Absent on the left) Extremities: + abnormal capillary refill (Abnormal on the left) Gastrointestinal (Abdomen): Inspection/Auscultation: abdomen normal to inspection Percussion/Palpation: abdomen soft Skin: + pallor (Both feet appear pale.); no wo und (There is no ulcerations of the lower extremity) Neurologic: normal touch/pain/proprioception, CN's II-XI intact bilaterally and moves all extremities Psychiatric: Orientation: alert and oriented x 3 Results & Data Vital Signs (Past 12 Hours) Vital Signs Temp Pulse Pulse Resp BP Pulse Ox O2 Del Method 09/25/23 08:24 36.7 C 45 L 16 126/60 90 Room Air 09/25/23 07:34 56 L 09/25/23 07:23 Room Air 09/25/23 01:27 36.6 C 60 18 136/66 93 Room Air 09/24/23 22:54 45 L 18 133/72 97 Room Air
[2023-09-25] MEDS: ASPIRIN 81 MG CHEW PO SCH (10:23)
--- NOTE | 2023-09-25 11:24 | Neurology Consultation ---
Date of Consultation September 25, 2023 Assessment & Plan (1) Left leg numbness: History of Present Illness Attending Physician: Ramiro Swan MD History of Present Illness pt this morning feeling well. essentially resolved symptoms and face without numbness. pt is well known to neurology clinic, Dr. Kern's pt, for her known brain lesions. mri brain negative. vascular surgery without intervention at this point for her superficial femoral artery occlusion. admission HPI: Diana is a 62 year old female with a PMH significant for HTN, hyperlipidemia, previous TIA, and aortic valve stenosis who presented to the [facility] ED on 09/24/23 with complaints of intermittent cold sensation of the LLE and intermittent BL facial paresthesias. She was noted to be hypertensive at 178/120 and bradycardic with HR in the 50's but otherwise stable. Labs including CBC, CMP, and TSH were unremarkable. Chest xray, xray of the lumbar spine, and CT of the head/brain wo con were read as negative for acute findings. Arterial US of the LLE was read as "1. Atherosclerosis with blunted monophasic waveforms as above. 2. No arterial flow identified within the dorsalis pedis artery.". MRI of the brain wo con was read as "1. No acute intracranial abnormality. No acute or subacute infarct. 2. Scattered T2/FLAIR hyperintense foci within the white matter of the cerebral hemispheres redemonstrated with new areas of increased signal within the central susy. Findings are suspicious for a demyelinating process such as multiple sclerosis.". Prior to admission the patient was given 5 mg IV Diazepam. At the time of the exam the patient was lying in bed in no acute distress. She states that she has had issues with what she describes as restless legs, left worse than right, for "years". She has been smoking cigarettes for 40 years, up until approximately 5 years ago she was smoking 2 PPD. Over the past 5 years she has been smoking 1/2 PPD. Last night she started to developed paresthesias and cold sensation in the LLE. This started around 10 pm while she was laying on the couch. She denies pain or weakness in the LLE when this occurred. This last for the entirety of the night but improved upon arrival to the ED. At the same time that her LLE symptoms began she experienced what felt like migraine like tension on the BL temples with associated intermittent paresthesias on the face. These symptoms have not been constant. She did notice them return for a short time when she was in the CT scanner earlier tonight. At the present time she is asymptomatic. She notes that she had an MRI of the brain approximately 4 years ago with some white matter abnormalities. She was seen by Neurology at least once for this but never followed up after. She denies recent chest pain, SOB, cough, changes in vision, hearing, taste, smell, abd pain, nausea, vomiting, diarrhea, dysuria, hematuria, melena, and recent trauma. She denies a hx of major bleeding. She is a full code and would want her Son to make decisions for her if she could not make them herself. Allergies Allergy/AdvReac Type Severity Reaction Status Date / Time doxycycline Allergy Unknown Unknown Unverified 09/24/23 20:03 latex Allergy Unknown Blister Verified 09/24/23 20:03 sulfamethoxazole Allergy Unknown Rash Unverified 09/24/23 20:03 [From Bactrim] trimethoprim [From Bactrim] Allergy Unknown Rash Unverified 09/24/23 20:03 amoxicillin Allergy Diarrhea Verified 09/24/23 20:03 Sulfa (Sulfonamide Allergy Rash Verified 09/24/23 20:03 Antibiotics) adhesive AdvReac Intermediate BLISTERS Verified 09/24/23 20:03 meperidine AdvReac Unknown N/V Verified 09/24/23 20:03 Home Medications Medication Instructions Recorded Confirmed Type amlodipine 5 mg tablet 5 mg PO PM 05/12/19 09/24/23 History losartan 25 mg tablet 25 mg PO PM 12/07/22 09/24/23 History albuterol sulfate 90 mcg/actuation 2 puff inhalation Q4H PRN SOB 08/28/23 09/24/23 History aerosol inhaler dicyclomine 10 mg capsule 10 mg PO QID PRN abdominal pain 09/20/23 09/24/23 Rx #120 caps atorvastatin 20 mg tablet 20 mg PO PM 09/24/23 09/24/23 History calcium carbonate 200 mg PO QDL 09/24/23 09/24/23 History fluticasone propionate 50 2 spray intranasal HS 09/24/23 09/24/23 History mcg/actuation nasal spray,suspension Patient History Medical History Degenerative disc disease CERVICAL AREA Osteoarthritis IBS (irritable bowel syndrome) Prediabetes DIET CONTROL Depression Anxiety Transient ischemic attack (TIA) JUST FOUND ON MRI BUT UNSURE OF WHEN THEY WOULD HAVE BEEN > MRI 8 YRS AGO Cardiac murmur NO ISSUES Hypertension Hyperlipidemia Chronic obstructive pulmonary disease NO INHALERS > LAST EXAC YRS AGO Surgical History History of cataract surgery Hx of lumpectomy LEFT History of dilatation and curettage Hx of fracture of leg WITH REPAIR > METAL PRESENT RIGHT LEG History of colonoscopy Hx of hernia repair History of cholecystectomy Family History Mother Hearing loss Hypertension Family/Other No problems noted. Father Hypertension Grandmother Cancer Aunt Cancer Other Asthma Heart disease No family history of allergies No family history of bleeding disorder Denies family history of Stroke Social History Smoking Status: Current every day smoker Tobacco Type: Cigarettes packs per day: 1; Cigarettes Per Day: 1/3 ppd; Second Hand Exposure: Yes; Do You Dip or Chew Tobacco: No; Hx Alcohol Use: No Hx Substance Use: No Preferred Language: Georgian Communication Ability: Effective Cloud Architect Required: No Beliefs That Will Affect Care: None marital status: Single Current Living Situation: Family Current Living Situation Comment: Home with son current occupational status: retired How many Children do You have: 0 Feels Safe at Home: Yes Safety Concerns: Feels Safe At This Time Assistive Devices: Cane Exam (Neuro) Physical Exam: HEENT: normocephalic Neuro: Mental: AOx4, fluent speech, normal comprehension, no apraxia, no L/R confusion, no neglect CN: PERRL, Full EOM, symmetric face, intact sensation t/o face, midline T/U/P, 5/5 SCM/traps. Motor: No abnormal movements, normal tone and bulk, 5/5 t/o bilaterally Sens: intact to touch b/l grossly Coord: intact FNT b/l DTR: 2+ sym b/l Impression: 62 yo female with transient face numbness and left leg numbness in setting of superficial femoral artery occlusion. mri brain negative. pt well known to Dr. Kern, neurology clinic, for her mri findings. she wants to follow up with [facility] neurology in the future. Recommendations: routine f/u with [facility] neurology as pt desires. no need for further work up from neurology. mri reviewed and discussed with pt. pt can continue outpt follow up with [facility]. call agin if new question. Chart reviewed I have spent more than 50% educating patient about potential diagnosis and neurological evaluation and coordinating care with patient's treatment team. Total time spent (including chart review and coordination of care): 60 min (this includes chart review). Results & Data Vital Signs (Past 12 Hours) Vital Signs Temp Pulse Pulse Resp BP Pulse Ox O2 Del Method 09/25/23 11:03 36.7 C 53 L 18 145/69 H 97 Room Air 09/25/23 08:24 36.7 C 45 L 16 126/60 90 Room Air 09/25/23 07:34 56 L 09/25/23 07:23 Room Air 09/25/23 01:27 36.6 C 60 18 136/66 93 Room Air PG Care Time/CCT Total # of Minutes Spent Total Time Spent with Patient: Total time spent is greater than 50% in coordination of care (as documented) at patient's floor/unit and/or counseling patient: Coding Level of Care Code 88829 IN/OBS CONSULT LVL 4,60M Diagnoses Left leg numbness R20.0
--- NOTE | 2023-09-25 11:47 | Discharge Summary ---
Date of Service September 25, 2023 Admission HPI Per Admitting Provider Diana is a 62 year old female with a PMH significant for HTN, hyperlipidemia, previous TIA, and aortic valve stenosis who presented to the [facility] ED on 09/24/23 with complaints of intermittent cold sensation of the LLE and intermittent BL facial paresthesias. She was noted to be hypertensive at 178/120 and bradycardic with HR in the 50's but otherwise stable. Labs including CBC, CMP, and TSH were unremarkable. Chest xray, xray of the lumbar spine, and CT of the head/brain wo con were read as negative for acute findings. Arterial US of the LLE was read as "1. Atherosclerosis with blunted monophasic waveforms as above. 2. No arterial flow identified within the dorsalis pedis artery.". MRI of the brain wo con was read as "1. No acute intracranial abnormality. No acute or subacute infarct. 2. Scattered T2/FLAIR hyperintense foci within the white matter of the cerebral hemispheres redemonstrated with new areas of increased signal within the central susy. Findings are suspicious for a demyelinating process such as multiple sclerosis.". Prior to admission the patient was given 5 mg IV Diazepam. At the time of the exam the patient was lying in bed in no acute distress. She states that she has had issues with what she describes as restless legs, left worse than right, for "years". She has been smoking cigarettes for 40 years, up until approximately 5 years ago she was smoking 2 PPD. Over the past 5 years she has been smoking 1/2 PPD. Last night she started to developed paresthesias and cold sensation in the LLE. This started around 10 pm while she was laying on the couch. She denies pain or weakness in the LLE when this occurred. This last for the entirety of the night but improved upon arrival to the ED. At the same time that her LLE symptoms began she experienced what felt like migraine like tension on the BL temples with associated intermittent paresthesias on the face. These symptoms have not been constant. She did notice them return for a short time when she was in the CT scanner earlier tonight. At the present time she is asymptomatic. She notes that she had an MRI of the brain approximately 4 years ago with some white matter abnormalities. She was seen by Neurology at least once for this but never followed up after. She denies recent chest pain, SOB, cough, changes in vision, hearing, taste, smell, abd pain, nausea, vomiting, diarrhea, dysuria, hematuria, melena, and recent trauma. She denies a hx of major bleeding. She is a full code and would want her Son to make decisions for her if she could not make them herself. Please refer to Dr. Cifuentes's attestation for any changes to the treatment plan Principal Diagnosis Possible multiple sclerosis with left sided paresthesia, occluded left superficial femoral artery of undetermined age Discharge Exam General-alert and oriented x3, no fevers, no chills HEENT-head atraumatic and normocephalic, pupils equal and reactive to light, extraocular muscles intact Neck-no lymphadenopathy or thyromegaly, trachea midline Chest-clear to auscultation. No rales, wheezing or rhonchi Cardiac-regular rate and rhythm, normal S1 and S2 Abdomen-normal bowel sounds, nontender, no hepatosplenomegaly Extremities-no cyanosis, clubbing, or edema Neuro-cranial nerves II through XII intact, motor and sensory function within normal limits, strength symmetrical, no focal deficits Psych-normal affect, normal mood Discharge Data Allergies Allergy/AdvReac Type Severity Reaction Status Date / Time doxycycline Allergy Unknown Unknown Unverified 09/24/23 20:03 latex Allergy Unknown Blister Verified 09/24/23 20:03 sulfamethoxazole Allergy Unknown Rash Unverified 09/24/23 20:03 [From Bactrim] trimethoprim [From Bactrim] Allergy Unknown Rash Unverified 09/24/23 20:03 amoxicillin Allergy Diarrhea Verified 09/24/23 20:03 Sulfa (Sulfonamide Allergy Rash Verified 09/24/23 20:03 Antibiotics) adhesive AdvReac Intermediate BLISTERS Verified 09/24/23 20:03 meperidine AdvReac Unknown N/V Verified 09/24/23 20:03 Consultations 09/24/23 20:02 ED Decision to Admit Stat 09/24/23 20:50 Consult Neurology Routine Consult Vascular Surgery Routine Ordered Studies 09/24/23 12:59 CT head/brain wo con Stat 09/24/23 16:10 US arterial duplex LE LT Stat 09/24/23 17:19 MR brain wo con Stat 09/24/23 20:40 CTA abd aorta runof w con [CT ang AA runof w inc wo ifdon] Stat Hospital Course (1) Superficial femoral artery occlusion: Left side. Undetermined age. No indication for heparin drip at this time. Vascular surgery consultation appreciated. Outpatient follow-up recommended (2) Facial paresthesia: Including the left side of her body. This could be due to occult multiple sclerosis. Neurology consultation and recommendations appreciated. She is expecting to be referred to a neurologist elsewhere who is a specialist in MS. Brain MRI scan is fortunately negative for acute CVA (3) Hypertension: Stable. Continue current medical management (4) Hyperlipidemia: Stable. Continue atorvastatin (5) Chronic obstructive pulmonary disease: Stable. Continue current medical management (6) Tobacco abuse: Smoking cessation recommended Plan Home today, September 24 Total Time Total Time Spent Total Time Spent (In Minutes): 45-minute Discharge Plan Discharge Items Patient Disposition: Home - Self-Care Reason For Visit: SUPERFICIAL FEMORAL ARTERY OCCLUSION, POSSIBLE MS Discharge Diagnosis: Paresthesia, occluded left superficial femoral artery, possible MS Condition on Discharge: Good Activity: Resume your previous activity Non-emergency contact: Primary Care Provider Call non-emergency contact if: your symptoms worsen Follow-up/Referrals: Kam Long DO [Primary Care Provider] - Manny Todd MD [Physician] - (Call to make an appointment for follow up in 6 months or sooner if her cramping when walking worsens. ) Diet: Regular and Heart Healthy Addtl Attending Provider Instructions: Take aspirin 81 mg daily. Smoking cessation is recommended. Follow-up with PCP for referral to neurologist who is a specialist in MS Pending Studies at Discharge: No Stand-Alone Forms: My [facility] Problemsolutions24, Smoking Cessation Medications and DC Order Prescriptions: New aspirin 81 mg tablet,delayed release (DR/EC) 81 mg PO DAILY Qty: 1 0RF Continued losartan 25 mg tablet 25 mg PO PM dicyclomine 10 mg capsule 10 mg PO QID PRN (Reason: abdominal pain) Qty: 120 3RF amlodipine 5 mg Tablet 5 mg PO PM albuterol sulfate 90 mcg/actuation HFA aerosol inhaler 2 puff INHALATION Q4H PRN (Reason: SOB) atorvastatin 20 mg tablet 20 mg PO PM calcium carbonate [Gaviscon] 200 mg calcium (500 mg) Tablet,Chewable 200 mg PO QDL fluticasone propionate 50 mcg/actuation spray,suspension 2 spray INTRANASAL HS Discharge Orders: Discharge Order (Routine); Ordered 09/25/23 Ordered By: Ramiro Swan Admission Data Admit Date/Time: 09/24/23 20:46 Attending Provider: Ramiro Swan Admit Provider: Maulik Cifuentes Primary Care Provider: Kam Long Other Providers: Maulik Cifuentes; Pk Lemos; Manny Todd Coding Level of Care Code 69695 INP/OBS DISCH >30 MIN Diagnoses Superficial femoral artery occlusion I70.209 Facial paresthesia R20.2 Hypertension I10 Hyperlipidemia E78.5 Chronic obstructive pulmonary disease J44.9 Tobacco abuse Z72.0
--- NOTE | 2023-09-25 19:21 | Billing Data ---
Date of Service September 25, 2023 Coding Level of Care Code 68158 INT INP/OBS CARE MIN Comment already billled
== END 2023-09-25 12:58 | disposition home or self-care (01) | DRG 301 ==
LOC: ED 12:49 → EDINP 20:46 → SUATTDRO 20:46 → 2N 23:44

== ENCOUNTER 2024-07-30 15:38 | Inpatient (IN) ==
[2024-07-30 16:35] LABS: Basophils # (auto) 0.08 K/uL (0.00-0.20); Basophils % (auto) 1.5 %; Eosinophils # (auto) 0.05 K/uL (0.00-0.50); Hematocrit (blood only) 48.3 % (37.0-47.0); Hemoglobin 16.7 g/dl (12.0-16.0); Immature Granulocytes # (auto) 0.01 K/uL (0.01-0.20); Immature Granulocytes % (auto) 0.2 %; Lymphocytes # (auto) 1.56 K/uL (1.20-3.40); Lymphocytes % (auto) 30.1 %; Mean Corpuscular Hemoglobin 30.7 pg (25.0-34.0); Mean Corpuscular Hgb Conc 34.6 g/dL (32.0-36.0); Mean Corpuscular Volume 88.8 fL (80.0-100.0); Mean Platelet Volume 9.1 fL (9.4-12.4); Monocytes # (auto) 0.64 K/uL (0.11-0.59); Monocytes % (auto) 12.3 %; Neutrophils # (auto) 2.85 K/uL (1.40-6.50); Neutrophils % (auto) 54.9 %; Platelet Count 248 K/uL (130-400); RDW Coefficient of Variation 12.8 % (11.5-14.5); Red Blood Count 5.44 M/uL (4.20-5.40); White Blood Count 5.19 K/ul (4.8-10.8)
[2024-07-30 16:35] LABS: Base Excess VBG 4.6 mEq/L; HCO3 VBG 28 mmol/L; Oxygen Saturation VBG 77.9 %; PCO2 VBG 38 mmHg (38-50); PO2 VBG 45 mmHg; pH VBG 7.48 (7.36-7.41)
--- NOTE | 2024-07-30 16:35 | Emergency Department Note ---
Impression & Plan RSV infection, Acute dyspnea, Acute hypoxic respiratory failure ED Provider Note HISTORY OF PRESENT ILLNESS: Patient is a 63-year-old female presenting with shortness of breath. Patient reports that her son tested positive for RSV over a week ago. She reports that 6 days ago she started having a sore throat, congestion and a cough. Her symptoms have progressively worsened over the last 6 days. She states that the last 48 hours her shortness of breath and cough have been significantly worse. She has not taken any antipyretics today. She states she has had temperatures of 101 at home. She has used a few home albuterol inhaler from a previous illness, but states that this has not been helping. She denies wearing any supplemental oxygen at baseline. She reports a isolated history of a left lower extremity DVT, but no PE history. She is on a baby aspirin daily but no other anticoagulants. Denies any significant chest pain with her shortness of breath. She states that in the last 48 hours she feels like she cannot breathe or catch her breath. She states she feels lightheaded when she is up and walking and very winded. Patient denies any recent antibiotic or steroid use. ROS: as above PHYSICAL EXAM: Constitutional: Patient appears in no acute distress. HENT: Head: Normocephalic and atraumatic. Eyes: EOMI, PERRL Mouth/Throat: Mucous membranes moist. Neck: Trachea midline. Neck supple. Cardiovascular: RRR, No murmurs, rubs or gallops. Intact distal pulses. Pulmonary/Chest: No respiratory distress. Breath sounds clear and equal bilaterally. No wheezes or rales. On 2L NC Abdominal: Abdomen soft, no tenderness, rebound or guarding. Musculoskeletal: No edema, tenderness or deformity noted. Skin: Warm and dry. No rash, erythema, pallor or cyanosis Psychiatric: Appropriate mood and affect for situation. Neurological: Alert and keenly responsive. CN II-XII grossly intact, moving all extremities equally and fully. MDM: - Vitals signs showed Hypertension, tachycardia and hypoxia. Patient placed on 2 L nasal cannula with improvement in her saturations. - History obtained via patient. History as above. - Chronic conditions affecting care: depression; HTN; HLD; TIA - Differential diagnoses include, but are not limited to: Congestive heart failure; acute coronary syndrome; COPD/asthma exacerbation; pulmonary edema; pulmonary embolism; pneumonia; pneumothorax; viral syndrome - Order placed for continuous cardiac monitoring. At this time, monitor showed rate of 75 bpm with normal sinus rhythm, per my interpretation. - External medical records reviewed. Oncology/hematology consultation note dated 05/24/2024 was reviewed. Patient was referred due to concern for potential monoclonal gammopathy of uncertain significance (MGUS). Diagnosis was inconclusive and it was recommended to get some further laboratory testing and she was supposed to follow-up in about 3 weeks. - EKG interpreted by myself showed normal sinus rhythm. Rate 81 bpm. QT 372. No acute ischemic changes. Noted to have some T wave inversions and slight ST depressions in leads II, III and aVF. - Laboratory workup interpreted by myself showed normal WBC; normal PT/INR; stable electrolytes; normal troponin; normal BNP - VBG grossly unremarkable - Viral respiratory panel positive for RSV - CXR negative for pneumonia, per my interpretation. Radiology notes a possible groundglass symmetry in the medial right lung concerning for potential pneumonia. - Patient given 60 mg IV solumedrol and 20 mg IV pepcid in ER. - Discussion was had with case briefer about patient's case and need for admission - Hospitalist consulted for admission [facility] ASSESSMENT AND PLAN: Diagnosis: RSV infection; acute dyspnea; acute hypoxia Plan: admit Past Med/Surg History Problem List (Updated 07/30/24 @ 17:31 by Litzy Candelaria MD) Acute hypoxic respiratory failure (Acute) Acute dyspnea (Acute) RSV infection (Acute) Vertigo Vitamin B12 deficiency MGUS (monoclonal gammopathy of unknown significance) Lumbosacral radiculopathy Idiopathic polyneuropathy Internal hemorrhoid Gastritis Abnormal weight loss Abnormal CT of the abdomen Demyelinating disease recent brain MRI and is to have a lumbar puncture in the near future. Follows with Dr Kern Left leg numbness (Acute) Superficial femoral artery occlusion Facial paresthesia (Acute) Weight loss Abnormal computed tomography of cecum and terminal ileum Change in bowel habits Carpal tunnel syndrome of right wrist Abnormal ECG Atypical chest pain Other cervical disc degeneration at C5-C6 level Other cervical disc degeneration, unspecified cervical region Gait instability Meniere's disease of left ear Sensorineural hearing loss (SNHL) of left ear with restricted hearing of right ear Basilar migraine Cerebrovascular disease Abnormal brain MRI (Acute) Ocular migraine Dizziness and giddiness Sensorineural hearing loss (SNHL) Dysfunction of left eustachian tube Encounter for pre-operative examination URI (upper respiratory infection) (Acute) Irritable bowel syndrome (Chronic) Peripheral neuropathy Aortic valve stenosis hx of following with Dr Raya - and was discharged "free and clear" per patient Left carotid artery stenosis monitoring Depression Medical History Swine flu Sciatic leg pain Bipolar disorder Post traumatic stress disorder Tobacco abuse Degenerative disc disease Osteoarthritis IBS (irritable bowel syndrome) Prediabetes Anxiety Transient ischemic attack (TIA) Cardiac murmur Hypertension Hyperlipidemia Chronic obstructive pulmonary disease Surgical History S/P MAKENZIE-BSO History of cataract surgery Hx of lumpectomy History of dilatation and curettage Hx of fracture of leg History of colonoscopy Hx of hernia repair History of cholecystectomy Family History Mother Hearing loss Hypertension Family/Other No problems noted. Father Hypertension Grandmother Cancer Aunt Cancer Other Asthma Heart disease No family history of allergies No family history of bleeding disorder Denies family history of Stroke Social History Smoking Status: Current every day smoker Tobacco Type: Cigarettes packs per day: 1; Cigarettes Per Day: 1/2 ppd (advised on policy); Second Hand Exposure: Yes; Do You Dip or Chew Tobacco: No; Hx Alcohol Use: No Hx Substance Use: No Preferred Language: Telugu Communication Ability: Effective Rope Rider Required: No Beliefs That Will Affect Care: None marital status: Single Current Living Situation: Family Current Living Situation Comment: Home with son current occupational status: retired How many Children do You have: 0 Feels Safe at Home: Yes Assistive Devices: Cane, Denture - Upper and Denture - Lower Allergies Allergies Allergy/AdvReac Type Severity Reaction Status Date / Time amoxicillin Allergy Intermediate Diarrhea Verified 02/07/24 13:03 Sulfa (Sulfonamide Allergy Intermediate Rash Verified 02/07/24 13:03 Antibiotics) doxycycline Allergy Unknown Unknown Verified 02/07/24 13:03 latex Allergy Unknown Blister Verified 02/07/24 13:03 sulfamethoxazole Allergy Unknown Rash Verified 02/07/24 13:03 [From Bactrim] trimethoprim [From Bactrim] Allergy Unknown Rash Verified 02/07/24 13:03 adhesive AdvReac Intermediate BLISTERS Verified 02/07/24 13:03 meperidine AdvReac Unknown N/V Verified 02/07/24 13:03 Home Meds Home Medications Medication Instructions Recorded Confirmed amlodipine 5 mg tablet 5 mg PO HS 05/12/19 02/07/24 losartan 25 mg tablet 25 mg PO QAM 12/07/22 02/07/24 albuterol sulfate 90 mcg/actuation 2 puff inhalation Q4H PRN SOB 08/28/23 02/07/24 aerosol inhaler atorvastatin 20 mg tablet 20 mg PO HS 09/24/23 02/07/24 fluticasone propionate 50 2 spray intranasal HS PRN sinus 09/24/23 02/07/24 mcg/actuation nasal congestion spray,suspension diazepam 2 mg tablet 2 mg PO QAM PRN Anxiety 09/30/23 02/07/24 aspirin 81 mg tablet,delayed 81 mg PO QAM 10/06/23 02/07/24 release Previous Rx's Medication Instructions Recorded dicyclomine 10 mg capsule 10 mg PO QID PRN abdominal pain 09/20/23 #120 caps syringe with needle, safety 3 mL #10 ea 01/20/24 25 gauge x 1" (BD Integra Syringe) pantoprazole 40 mg tablet,delayed 40 mg PO BID #180 tabs 03/28/24 release cyanocobalamin (vitamin B-12) 1,000 mcg subcut .weekly #10 mL 06/27/24 1,000 mcg/mL injection solution ondansetron 4 mg disintegrating 4 mg PO Q6H #120 tabs 07/21/24 tablet Results & Data (ED) Vital Signs Vital Signs - 24 hr 07/30/24 15:50 07/30/24 16:11 07/30/24 16:15 Temperature 36.4 C L Temperature Source Oral Pulse Rate 92 H 89 Pulse Rate [Apical] Respiratory Rate 22 Respiratory Effort / Characteristics Spontaneous SOB on Exertion Respiratory Depth Normal Respiratory Pattern Regular Blood Pressure 160/83 H Blood Pressure [Left Arm] Blood Pressure Mean 108 Blood Pressure Mean [Left Arm] Pulse Oximetry 87 L 89 L Oxygen Delivery Method Room Air Room Air Oxygen Flow Rate Sepsis Recent Fever Within 48 Hours Yes Sepsis New/Unexplained Change in Mental Status No Sepsis Action Taken by Nursing No Action Required Oxygen Flow Rate - Titration 2 Pulse Oximetry Post Tiitration 94 07/30/24 16:15 07/30/24 16:15 Temperature Temperature Source Pulse Rate 75 Pulse Rate [Apical] 73 Respiratory Rate 24 22 Respiratory Effort / Characteristics Non-Labored Respiratory Depth Normal Respiratory Pattern Blood Pressure Blood Pressure [Left Arm] 144/92 H Blood Pressure Mean Blood Pressure Mean [Left Arm] 109 Pulse Oximetry 94 93 Oxygen Delivery Method Nasal Cannula Nasal Cannula Oxygen Flow Rate 2 2 Sepsis Recent Fever Within 48 Hours Sepsis New/Unexplained Change in Mental Status Sepsis Action Taken by Nursing Oxygen Flow Rate - Titration Pulse Oximetry Post Tiitration Laboratory Data 07/30/24 16:12 07/30/24 16:12 Lab Results 07/30/24 07/30/24 07/30/24 Range/Units 16:08 16:12 16:25 WBC 5.19 (4.8-10.8) K/ul RBC 5.44 H (4.20-5.40) M/uL Hgb 16.7 H (12.0-16.0) g/dl Hct 48.3 H (37.0-47.0) % MCV 88.8 (80.0-100.0) fL MCH 30.7 (25.0-34.0) pg MCHC 34.6 (32.0-36.0) g/dL RDW Std Deviation 42.0 (36.4-46.3) fL RDW Coeff of Faustino 12.8 (11.5-14.5) % Plt Count 248 (130-400) K/uL MPV 9.1 L (9.4-12.4) fL Immature Gran % (Auto) 0.2 % Neut % (Auto) 54.9 % Lymph % (Auto) 30.1 % [place] % (Auto) 12.3 % Eos % (Auto) 1.0 % Baso % (Auto) 1.5 % Neut # (Auto) 2.85 (1.40-6.50) K/uL Lymph # (Auto) 1.56 (1.20-3.40) K/uL [place] # (Auto) 0.64 H (0.11-0.59) K/uL Eos # (Auto) 0.05 (0.00-0.50) K/uL Baso # (Auto) 0.08 (0.00-0.20) K/uL Immature Gran # (Auto) 0.01 (0.01-0.20) K/uL PT 10.9 (9.0-12.0) Seconds INR 1.0 (0.9-1.1) VBG pH 7.48 H (7.36-7.41) VBG pCO2 38 (38-50) mmHg VBG pO2 45 mmHg VBG HCO3 28 mmol/L VBG O2 Saturation 77.9 % VBG Base Excess 4.6 mEq/L Sodium 138 (136-145) mmol/L Potassium 3.5 (3.5-5.1) mmol/L Chloride 105 (98-107) mmol/L Carbon Dioxide 25 (21-32) mmol/L Anion Gap 8 (3-11) BUN 10 (6-23) mg/dl Creatinine 0.88 (0.6-1.2) mg/dl Est Cr Clr Drug Dosing 55.0 ml/min eGFR 72.89 BUN/Creatinine Ratio 11.4 (10-20) Glucose 113 H (70-99(Fasting)) mg/dl Calcium 9.5 (8.6-10.3) mg/dl Magnesium 2.0 (1.7-2.4) mg/dl Total Bilirubin 0.6 (0.2-1.0) mg/dl AST 16 (13-39) U/L ALT 18 (7-52) U/L Alkaline Phosphatase 144 H (34-104) U/L Troponin I High Sens 6.3 (0-14) pg/ml B-Natriuretic Peptide 23 (0-100) pg/ml Total Protein 7.6 (6.0-8.3) gm/dl Albumin 4.4 (3.4-5.0) gm/dl Globulin 3.2 (2.5-4.0) gm/dl Albumin/Globulin Ratio 1.4 (0.9-2) Adenovirus (PCR) Not Detected (NotDetected) B. pertussis DNA (PCR) Not Detected (NotDetected) B.parapertussis DNA PCR Not Detected (NotDetected) C. pneumoniae DNA (PCR) Not Detected (NotDetected) Coronavirus OC43 (PCR) Not Detected (NotDetected) Coronavirus HKU1 (PCR) Not Detected (NotDetected) Coronavirus 229E (PCR) Not Detected (NotDetected) SARS-CoV-2 (PCR) Not Detected (NotDetected) Coronavirus NL63 (PCR) Not Detected (NotDetected) Human Metapneumovir PCR Not Detected (NotDetected) Influenza Type A (PCR) Not Detected (NotDetected) Influenza Type B (PCR) Not Detected (NotDetected) M. pneumoniae (PCR) Not Detected (NotDetected) Parainfluenza 1 (PCR) Not Detected (NotDetected) Parainfluenza 2 (PCR) Not Detected (NotDetected) Parainfluenza 3 (PCR) Not Detected (NotDetected) Parainfluenza 4 (PCR) Not Detected (NotDetected) RSV (PCR) DETECTED A (NotDetected) Entero/Rhino (PCR) Not Detected (NotDetected) Imaging Data Radiologist's Impression: Chest X-Ray 07/30/24 16:00 EXAM: Radiograph of the Chest 1 View INDICATION: Shortness of breath. TECHNIQUE: Frontal view of the chest. COMPARISON: CT chest 06/25/2024 and chest radiograph 09/24/2023 FINDINGS: Lungs and pleural spaces: Slight increased density noted in the medial right lung base may reflect a groundglass infiltrate. No pleural effusion or pneumothorax. Heart: Shape and configuration within normal limits allowing for technique. Mediastinum: Normal contour. Bones/joints: No fracture, erosion or dislocation. Soft tissues: No abnormality noted. No radiopaque foreign body noted. Upper abdomen: No abnormality noted. IMPRESSION: Possible groundglass infiltrate in the medial right lung base. Pneumonia not excluded. ACT 112: Negative or not required by law. Electronically signed by Aislinn Soares 07-30-2024 4:40 PM Discharge Plan Visit Data Chief Complaint: Shortness of Breath/Dyspnea Stated Complaint: SOB, COUGH, STUFFY NOSE, FEVER, EXPOSED TO RSV ED Provider: Litzy Candelaria Discharge Problem: RSV infection, Acute dyspnea, Acute hypoxic respiratory failure Forms Stand Alone Forms: [facility] [employer] Prescriptions Prescriptions: No Action pantoprazole 40 mg tablet,delayed release (DR/EC) 40 mg PO BID Qty: 180 3RF cyanocobalamin (vitamin B-12) 1,000 mcg/mL solution 1,000 mcg subcut .weekly Qty: 10 1RF Rx Instructions: 1 injection/week for 8 weeks, followed by 1 injection/month ondansetron 4 mg tablet,disintegrating 4 mg PO Q6H Qty: 120 0RF losartan 25 mg tablet 25 mg PO QAM dicyclomine 10 mg capsule 10 mg PO QID PRN (Reason: abdominal pain) Qty: 120 3RF diazepam 2 mg tablet 2 mg PO QAM PRN (Reason: Anxiety) (DME) BD Integra Syringe 3 mL 25 gauge x 1" syringe See Rx Instructions .Route Qty: 10 3RF Rx Instructions: As directed amlodipine 5 mg Tablet 5 mg PO HS albuterol sulfate 90 mcg/actuation HFA aerosol inhaler 2 puff INHALATION Q4H PRN (Reason: SOB) aspirin 81 mg tablet,delayed release (DR/EC) 81 mg PO QAM atorvastatin 20 mg tablet 20 mg PO HS fluticasone propionate 50 mcg/actuation spray,suspension 2 spray INTRANASAL HS PRN (Reason: sinus congestion) Referrals Referrals: Kimi Sullivan DO [Primary Care Provider] -
--- NOTE | 2024-07-30 16:41 | XRay Report ---
EXAM: Radiograph of the Chest 1 View INDICATION: Shortness of breath. TECHNIQUE: Frontal view of the chest. COMPARISON: CT chest 06/25/2024 and chest radiograph 09/24/2023 FINDINGS: Lungs and pleural spaces: Slight increased density noted in the medial right lung base may reflect a groundglass infiltrate. No pleural effusion or pneumothorax. Heart: Shape and configuration within normal limits allowing for technique. Mediastinum: Normal contour. Bones/joints: No fracture, erosion or dislocation. Soft tissues: No abnormality noted. No radiopaque foreign body noted. Upper abdomen: No abnormality noted. IMPRESSION: Possible groundglass infiltrate in the medial right lung base. Pneumonia not excluded. ACT 112: Negative or not required by law. Electronically signed by Aislinn Soares 07-30-2024 4:40 PM
[2024-07-30 16:53] LABS: Albumin Globulin Ratio 1.4 (0.9-2); Albumin Level 4.4 gm/dl (3.4-5.0); BUN Creatinine Ratio 11.4 (10-20); Bilirubin,Total 0.6 mg/dl (0.2-1.0); Calcium 9.5 mg/dl (8.6-10.3); Globulin 3.2 gm/dl (2.5-4.0); Potassium 3.5 mmol/L (3.5-5.1); Total Protein 7.6 gm/dl (6.0-8.3)
[2024-07-30 16:59] LABS: Troponin I High Sensitivity 6.3 pg/ml (0-14)
[2024-07-30 17:02] LABS: Prothrombin Time 10.9 Seconds (9.0-12.0)
[2024-07-30 17:24] LABS: Adenovirus PCR Not Detected (NotDetected); Bordetella parapertussis PCR Not Detected (NotDetected); Bordetella pertussis PCR Not Detected (NotDetected); Chlamydia pneumoniae PCR Not Detected (NotDetected); Coronavirus 229E PCR Not Detected (NotDetected); Coronavirus CoV-2 (COVID19)PCR Not Detected (NotDetected); Coronavirus HKU1 PCR Not Detected (NotDetected); Coronavirus NL63 PCR Not Detected (NotDetected); Coronavirus OC43PCR Not Detected (NotDetected); Human Metapneumovirus PCR Not Detected (NotDetected); Influenza A PCR Not Detected (NotDetected); Influenza B PCR Not Detected (NotDetected); Mycoplasma pneumoniae PCR Not Detected (NotDetected); Parainfluenza Virus 1 PCR Not Detected (NotDetected); Parainfluenza Virus 2 PCR Not Detected (NotDetected); Parainfluenza Virus 3 PCR Not Detected (NotDetected); Parainfluenza Virus 4 PCR Not Detected (NotDetected); Respiratory Syncytial VirusPCR DETECTED (NotDetected); Rhinovirus/Enterovirus PCR Not Detected (NotDetected)
[2024-07-30] MEDS: methylPREDNISolone 125 MG/2 ML VIAL IV STA (17:50)
[2024-07-30] MEDS: FAMOTIDINE 20MG IV PUSH 20 MG/5 ML SYR IV STA (17:51)
[2024-07-30] MEDS: ALBUT/IPRATROP 3MG/0.5MG NEB 3 ML VIAL NEB STA (18:49)
--- NOTE | 2024-07-30 18:52 | History & Physical Report ---
Date of Service July 30, 2024 Assessment & Plan (1) RSV infection: Plan: Supportive care with duonebs q6h, guaifenesin Steroids given in the ER with patient but no wheezing to suggest this needs to continue No significant change on chest x-ray and procalcitonin negative, sputum culture ordered to assess for bacterial contribution (2) Acute hypoxic respiratory failure: Plan: Secondary to RSV inventive spirometer Flutter valve Plan VTE Prophylaxis - Lovenox 40mg SQ daily Diet - regular Disposition - admit to med/surg History of Present Illness Chief Complaint: Shortness of breath Primary Care Provider: DO Diana Julien Ada is a 63 year old female who presents to the ER with shortness of breath. Progressive worsening respiratory symptoms with sore throat, nasal c ongestion and cough over the last 6 days. She has also had fevers during this time but none today. Over the last 2 days she feels she cannot catch her breath. She is not on oxygen at baseline and requiring 2 L/min O2 in the emergency room. No leg or calf pain. She reports a possible diagnosis of asthma or COPD but albuterol inhaler has not been helping at home and she takes no maintenance inhaler. Allergies Allergy/AdvReac Type Severity Reaction Status Date / Time amoxicillin Allergy Intermediate Diarrhea Verified 02/07/24 13:03 Sulfa (Sulfonamide Allergy Intermediate Rash Verified 02/07/24 13:03 Antibiotics) doxycycline Allergy Unknown Unknown Verified 02/07/24 13:03 latex Allergy Unknown Blister Verified 02/07/24 13:03 sulfamethoxazole Allergy Unknown Rash Verified 02/07/24 13:03 [From Bactrim] trimethoprim [From Bactrim] Allergy Unknown Rash Verified 02/07/24 13:03 adhesive AdvReac Intermediate BLISTERS Verified 02/07/24 13:03 meperidine AdvReac Unknown N/V Verified 02/07/24 13:03 Home Medications Medication Instructions Recorded Confirmed Type amlodipine 5 mg tablet 5 mg PO HS 05/12/19 07/30/24 History losartan 25 mg tablet 25 mg PO QPM 12/07/22 07/30/24 History dicyclomine 10 mg capsule 10 mg PO QID PRN abdominal pain 09/20/23 07/30/24 Rx #120 caps atorvastatin 20 mg tablet 20 mg PO HS 09/24/23 07/30/24 History fluticasone propionate 50 2 spray intranasal HS PRN sinus 09/24/23 07/30/24 History mcg/actuation nasal congestion spray,suspension diazepam 2 mg tablet 2 mg PO TID PRN Anxiety 09/30/23 07/30/24 History aspirin 81 mg tablet,delayed 81 mg PO DAILY 10/06/23 07/30/24 History release syringe with needle, safety 3 mL #10 ea 01/20/24 02/07/24 Rx 25 gauge x 1" (BD Integra Syringe) pantoprazole 40 mg tablet,delayed 40 mg PO BID #180 tabs 03/28/24 07/30/24 Rx release cyanocobalamin (vitamin B-12) 1,000 mcg subcut MONTHLY 07/30/24 07/30/24 History 1,000 mcg/mL injection solution ondansetron 4 mg disintegrating 4 mg PO Q6H PRN Nausea 07/30/24 07/30/24 History tablet Past Med/Surg History Problem List (Updated 07/31/24 @ 00:24 by Scooby Worley MD) Acute hypoxic respiratory failure (Acute) Acute dyspnea (Acute) RSV infection (Acute) Vertigo Vitamin B12 deficiency MGUS (monoclonal gammopathy of unknown significance) Lumbosacral radiculopathy Idiopathic polyneuropathy Internal hemorrhoid Gastritis Abnormal weight loss Abnormal CT of the abdomen Demyelinating disease recent brain MRI and is to have a lumbar puncture in the near future. Follows with Dr Kern Left leg numbness (Acute) Superficial femoral artery occlusion Facial paresthesia (Acute) Weight loss Abnormal computed tomography of cecum and terminal ileum Change in bowel habits Carpal tunnel syndrome of right wrist Abnormal ECG Atypical chest pain Other cervical disc degeneration at C5-C6 level Other cervical disc degeneration, unspecified cervical region Gait instability Meniere's disease of left ear Sensorineural hearing loss (SNHL) of left ear with restricted hearing of right ear Basilar migraine Cerebrovascular disease Abnormal brain MRI (Acute) Ocular migraine Dizziness and giddiness Sensorineural hearing loss (SNHL) Dysfunction of left eustachian tube Encounter for pre-operative examination URI (upper respiratory infection) (Acute) Irritable bowel syndrome (Chronic) Peripheral neuropathy Aortic valve stenosis hx of following with Dr Raya - and was discharged "free and clear" per patient Left carotid artery stenosis monitoring Depression Medical History Swine flu Sciatic leg pain Bipolar disorder Post traumatic stress disorder Tobacco abuse Degenerative disc disease Osteoarthritis IBS (irritable bowel syndrome) Prediabetes Anxiety Transient ischemic attack (TIA) Cardiac murmur Hypertension Hyperlipidemia Chronic obstructive pulmonary disease Surgical History S/P MAKENZIE-BSO History of cataract surgery Hx of lumpectomy History of dilatation and curettage Hx of fracture of leg History of colonoscopy Hx of hernia repair History of cholecystectomy Family History Mother Hearing loss Hypertension Family/Other No problems noted. Father Hypertension Grandmother Cancer Aunt Cancer Other Asthma Heart disease No family history of allergies No family history of bleeding disorder Denies family history of Stroke Social History Smoking Status: Current every day smoker Tobacco Type: Cigarettes packs per day: 1; Cigarettes Per Day: 10; Second Hand Exposure: Yes; Do You Dip or Chew Tobacco: No; Hx Alcohol Use: No Hx Substance Use: No Preferred Language: Arabic Communication Ability: Effective Certified Physician'S Assistant Required: No Beliefs That Will Affect Care: None marital status: Single Current Living Situation: Family Current Living Situation Comment: Son current occupational status: retired How many Children do You have: 0 Feels Safe at Home: Yes Safety Concerns: Feels Safe At This Time Assistive Devices: Cane, Denture - Upper, Denture - Lower and Glasses Review of Systems Review of Systems: All systems reviewed & are unremarkable except as noted in HPI & below Physical Exam Constitutional: WD/WN, vitals as above ENMT: external ear and nose normal, oropharynx normal Respiratory: + labored breathing and + uses accessory muscles Auscultation: + crackles (bibasal); breath sounds present, no diminished lung sounds and no wheezes Cardiovascular: RRR, no murmur, no edema Gastrointestinal (Abdomen): normal bowel sounds, soft, nontender, no hepatosplenomegaly Results & Data Results & Data Vital Signs (Past 12 Hours) Vital Signs Temp Pulse Pulse Resp BP BP Pulse Ox 07/30/24 18:28 07/30/24 17:00 75 26 H 158/93 H 92 07/30/24 16:15 75 22 93 07/30/24 16:15 73 24 144/92 H 94 07/30/24 16:15 89 L 07/30/24 16:11 89 07/30/24 16:06 91 H 25 H 93 07/30/24 15:50 36.4 C L 92 H 22 160/83 H 87 L O2 Del Method O2 Flow Rate 07/30/24 18:28 Nasal Cannula 2 07/30/24 17:00 Nasal Cannula 2 07/30/24 16:15 Nasal Cannula 2 07/30/24 16:15 Nasal Cannula 2 07/30/24 16:15 Room Air 07/30/24 16:11 07/30/24 16:06 07/30/24 15:50 Room Air Laboratory Results Abnormal lab results 07/30/24 07/30/24 07/30/24 Range/Units 16:08 16:12 16:25 RBC 5.44 H (4.20-5.40) M/uL Hgb 16.7 H (12.0-16.0) g/dl Hct 48.3 H (37.0-47.0) % MPV 9.1 L (9.4-12.4) fL [place] # (Auto) 0.64 H (0.11-0.59) K/uL VBG pH 7.48 H (7.36-7.41) Glucose 113 H (70-99(Fasting)) mg/dl Alkaline Phosphatase 144 H (34-104) U/L RSV (PCR) DETECTED A (NotDetected) Diagnostic Findings Radiograph of the Chest 1 View INDICATION: Shortness of breath. TECHNIQUE: Frontal view of the chest. COMPARISON: CT chest 06/25/2024 and chest radiograph 09/24/2023 FINDINGS: Lungs and pleural spaces: Slight increased density noted in the medial right lung base may reflect a groundglass infiltrate. No pleural effusion or pneumothorax. Heart: Shape and configuration within normal limits allowing for technique. Mediastinum: Normal contour. Bones/joints: No fracture, erosion or dislocation. Soft tissues: No abnormality noted. No radiopaque foreign body noted. Upper abdomen: No abnormality noted. IMPRESSION: Possible groundglass infiltrate in the medial right lung base. Pneumonia not excluded. Medications Administered ER medications given: Solu-Medrol 60 mg IV Famotidine 20 mg IV ECG Rate (beats per minute): 81 Rhythm: normal sinus Findings: + other (Pulmonary disease pattern) Comparison ECG Date: from (September 24, 2023) Change: the following changes noted (ST now depressed in anterior leads, T wave inversion more evident in inferior lateral leads) Code Status & VTE Plan Code Status Full VTE Prophylaxis Plan VTE Prophylaxis will be ordered: Yes PG Care Time/CCT Total # of Minutes Spent Total Time Spent with Patient: Total time spent is greater than 50% in coordination of care (as documented) at patient's floor/unit and/or counseling patient: Coding Level of Care Code 31151 INT INP/OBS CARE 255MIN Diagnoses Respiratory syncytial virus (RSV) as cause of acute bronchitis J20.5 RSV infection type: acute bronchitis Acute hypoxic respiratory failure J96.01 (1) RSV infection RSV infection type: acute bronchitis Qualified Code(s): J20.5 - Acute bronchitis due to respiratory syncytial virus
[2024-07-30] MEDS ORDERED: FLUTICASONE PROPIONATE NA SPR 16 GM BTL NAE PRN (20:06)
[2024-07-30] MEDS ORDERED: ONDANSETRON 4 MG OD TAB PO PRN (20:06)
[2024-07-30] MEDS ORDERED: DICYCLOMINE HCL 10 MG CAP PO PRN (20:06)
[2024-07-30] MEDS: LOSARTAN POTASSIUM 25 MG TAB PO SCH (20:33)
[2024-07-30] MEDS: ATORVASTATIN 20 MG TAB PO SCH (20:33)
[2024-07-30] MEDS: PANTOprazole 40 MG TAB PO SCH (20:33)
[2024-07-30] MEDS: amLODIPine BESYLATE 5 MG TAB PO SCH (20:33)
[2024-07-30] MEDS: BENZONATATE 100 MG CAPSULE PO PRN (22:29)
[2024-07-30 22:40] LABS: Appearance Urine Clear (Clear); Bilirubin Urine Negative (Negative); Blood Urine Negative (Negative); Color Urine Yellow; Glucose Urine UA Negative (Negative); Ketones Urine Negative (Negative); Leukocyte Esterase Urine Negative (Negative); Nitrite Urine Negative (Negative); Protein Urine Negative (Negative); Specific Gravity Urine 1.006 (1.000-1.030); Urobilinogen Urine Negative (Negative)
[2024-07-31] MEDS: ALBUT/IPRATROP 3MG/0.5MG NEB 3 ML VIAL NEB SCH (01:53)
[2024-07-31] MEDS: DEXTROMETHORPHAN POLYMR COMPLX 30 MG/5 ML UDP PO PRN (05:02)
[2024-07-31] MEDS: SODIUM CHLORIDE 0.65% NA SOLN 45 ML (OCEAN) PRN (05:02)
[2024-07-31] MEDS: guaiFENesin 600 MG TABCR PO SCH (07:39)
[2024-07-31] MEDS: ASPIRIN 81 MG ECTAB PO SCH (07:39)
[2024-07-31] MEDS: ENOXAPARIN INJ 40 MG/0.4 ML SYR SQ SCH (09:26)
--- NOTE | 2024-07-31 11:33 | Hospitalist Progress Note ---
Date of Service July 31, 2024 Assessment & Plan (1) RSV infection: (2) Acute hypoxic respiratory failure: Plan Diana is a 63F with a Pmhx of Gastritis, asthma, HTN, hyperlipidemia, previous TIA, and aortic valve stenosis who presented with SOB x 1 week. Recently tested positive for RSV, using her albuterol inhaler at home without relief. #RSV infection/ Acute hypoxic respiratory failure Will given dexamethasone 6mg today IV Supportive care: scheduled nebs and Mucinex, IS, FV No significant change on chest x-ray and procalcitonin negative, sputum culture ordered to assess for bacterial contribution. Abx deferred at this time Weaned down to room air, but requiring O2 with ambulation. HTN - continue amlodipine, losartan HLD/hx TIA - continue ASA and statin Dispo: continued inpatient stay, plan for 2-step tomorrow morning and likely dis charge DVT proh: Lovenox Admission and Anticipated Discharge Date Admission Date: July 30, 2024 Subjective Patient seen lying in bed, states she feels much better after taking the Mucinex and finally able to get some sleep Still has cough but it is much less. has not been moving around much appetite is okay, did have some diarrhea at home. Review of Systems Review of Systems: All systems reviewed & are unremarkable except as noted in Subjective Physical Exam Physical Exam: General: NAD, VS as above Resp: normal respiratory effort, dry cough, rhonchi with expiratory wheezing Left lower lobe CV: RRR, no murmur, Abd: normal bowel sounds, non tender, no hepatosplenomegaly Extremities: Moves all extremities, no edema Neuro: A&O x3, Skin: intact, no lesions noted Results & Data Results & Data Vital Signs (Past 12 Hours) Vital Signs Temp Pulse Resp BP Pulse Ox O2 Del Method 07/31/24 10:33 Room Air 07/31/24 07:34 98.1 F 96 H 18 122/71 90 Room Air 07/31/24 07:19 90 18 91 Room Air Laboratory Results cbc and chemistry reviewed PG Care Time/CCT Total # of Minutes Spent Total Time Spent with Patient: Total time spent is greater than 50% in coordination of care (as documented) at patient's floor/unit and/or counseling patient: Coding Level of Care Code 50233 SUB INP/OBS CARE 2/35MIN Diagnoses Respiratory syncytial virus (RSV) as cause of acute bronchitis J20.5 RSV infection type: acute bronchitis Acute hypoxic respiratory failure J96.01 (1) RSV infection RSV infection type: acute bronchitis Qualified Code(s): J20.5 - Acute bronchitis due to respiratory syncytial virus
[2024-07-31] MEDS: dexAMETHasone 6 MG in SYRINGE 0 ML IV ONE (12:19)
[2024-07-31] MEDS: NICOTINE 14 MG/24 HR PATCH TD SCH (18:04)
[2024-08-01 07:00] VITALS: BP 115/67; TEMP 98.4
[2024-08-01 08:39] VITALS: PULSE 96; RESP 18; O2SAT 92
[2024-08-01] MEDS: clonazePAM 0.5 MG TAB PO STA (09:03)
[2024-08-01] MEDS ORDERED: FLUTICASONE PROPIONATE NA SPR 16 GM BTL NAE PRN (10:11)
[2024-08-01] MEDS: predniSONE 20 MG TAB PO SCH (10:58)
--- NOTE | 2024-08-01 13:48 | Discharge Summary ---
Discharge Summary Date of Service August 01, 2024 Principal Dx & Hospital Course #1 = Principal Diagnosis (1) RSV infection: (2) Acute hypoxic respiratory failure: Plan #RSV infection/ Acute hypoxic respiratory failure / RSV as the cause of acute bronchitis Diana is a 63F with a Pmhx of Gastritis, asthma, HTN, hyperlipidemia, previous TIA, and aortic valve stenosis who presented with SOB x 1 week. Recently tested positive for RSV, using her albuterol inhaler at home without relief. Did require supplemental oxygen. Treated with steroids, nebs and mucinex. Did she great improvement with Mucinex and felt like she was able to sleep. No significant change on chest x-ray and procalcitonin negative, sputum culture was not produced, no indication for antibiotics. Did have an episode of tachycardia following a duoneb, where she then became anxious and more short of breath. Unfortunately her 2-step was completed shortly after this showing requirements of 2L at rest and 3L with activity. She was able to be weaned down to room air prior to discharge. She was set up with oxygen at home, with goals of 90-94%, instructions given on self weaning, she does has a pulse-ox at home. Continue IS and FV at home. Prednisone taper rx. HTN - continue amlodipine, losartan HLD/hx TIA - continue ASA and statin Dispo: discharge to home today Admission HPI Per Admitting Provider Diana Caballero is a 63 year old female who presents to the ER with shortness of breath. Progressive worsening respiratory symptoms with sore throat, nasal congestion and cough over the last 6 days. She has also had fevers during this time but none today. Over the last 2 days she feels she cannot catch her breath. She is not on oxygen at baseline and requiring 2 L/min O2 in the emergency room. No leg or calf pain. She reports a possible diagnosis of asthma or COPD but albuterol inhaler has not been helping at home and she takes no maintenance inhaler. Discharge Exam General: NAD, VS as above Resp: normal respiratory effort, cough improved, no wheezing. Rhonchi present but improved CV: RRR, no murmur, Abd: normal bowel sounds, non tender, no hepatosplenomegaly Extremities: Moves all extremities, no edema Neuro: A&O x3, Skin: intact, no lesions noted Discharge Plan Discharge Items Patient Disposition: Home - Self-Care Reason For Visit: RSV, ASTHMA EXACERBATION Discharge Diagnosis: RSV, asthma exacerbation Activity: Resume your previous activity Weightbearing: Full weightbearing Non-emergency contact: Primary Care Provider Call non-emergency contact if: you have any medication questions, your symptoms worsen, your pain is worsening and your temperature is above 101 Follow-up/Referrals: Kimi Sullivan DO [Primary Care Provider] - 08/04/24 1:25 pm ( follow-up in 1 week) Diet: Regular Addtl Attending Provider Instructions: Ms. Caballero, You were hospitalized after having shortness of breath, found to be from RSV and asthma exacerbation. You have improved with steroids, nebulizer treatments and oxygen. You had a two-step with respiratory therapy done to qualify you for home oxygen that recommended 2 L of oxygen at rest and 3 L of oxygen with activity. You have been weaning down the oxygen during your stay. I suspect that you will only need this oxygen for a few weeks, your PCP can repeat a walking test at your follow-up visit to decide if you still need the oxygen. Use your pulse oximeter at home to monitor your oxygen saturations goal to have them between 90 to 94%, if they are routinely above 94% you can continue to wean down the oxygen. Continue to take Mucinex 1200 mg twice a day until you are feeling better. I have sent in a prescription for this but is also [id number] if your insurance does not pay for it please pick it up [id number]. Generic brand works just as well. I have also sent in prednisone for you to take please follow the instructions on the bottle. Continue to use your rescue inhaler at home as needed. Continue to use the incentive spirometer that you were provided at the hospital. Anything you can do to cut back or quit smoking is going to help your overall breathing. Activity: You can do normal everyday activities as your body allows. Take rest breaks if you feel tired. Do not overexert. Stop activity if you have pain, shortness of breath or feel dizzy. Follow-up appointments: Make an appointment with your primary care physician within one week of discharge. A copy of this summary will be sent to them. Every time you see your primary care physician, or any other doctor, bring your medication list, and a list of questions. CONTACT YOUR PRIMARY CARE PROVIDER if you experience any of the following: Shortness of breath or difficulty breathing Fevers or chills Feeling tired with normal activity or experiencing dizziness or fainting Difficulty following your treatment plan, or difficulty taking medications CALL 911 OR GO TO THE EMERGENCY DEPARTMENT if you experience any of the following: Severe abdominal pain or nausea/vomiting Severe chest pain, or chest pain that radiates (moves) to your jaw or arm Sudden, severe shortness of breath or difficulty breathing Thank you for allowing us to participate in your care. Pending Studies at Discharge: No Stand-Alone Forms: My [facility], Smoking Cessation Medications and DC Order Prescriptions: New prednisone 20 mg Tablet See Taper PO QAM Qty: 9 0RF Taper: Taper, Blank 40 mg DAILY for 3 Days 20 mg DAILY for 3 Days guaifenesin [Mucinex] 600 mg Tablet Extended Release 12hr 1,200 mg PO Q12 5 Days Qty: 20 0RF Continued pantoprazole 40 mg tablet,delayed release (DR/EC) 40 mg PO BID Qty: 180 3RF losartan 25 mg tablet 25 mg PO QPM dicyclomine 10 mg capsule 10 mg PO QID PRN (Reason: abdominal pain) Qty: 120 3RF (DME) BD Integra Syringe 3 mL 25 gauge x 1" syringe See Rx Instructions .Route Qty: 10 3RF Rx Instructions: As directed amlodipine 5 mg Tablet 5 mg PO HS aspirin 81 mg tablet,delayed release (DR/EC) 81 mg PO DAILY atorvastatin 20 mg tablet 20 mg PO HS fluticasone propionate 50 mcg/actuation spray,suspension 2 spray INTRANASAL HS PRN (Reason: sinus congestion) cyanocobalamin (vitamin B-12) 1,000 mcg/mL solution 1,000 mcg subcut MONTHLY ondansetron 4 mg tablet,disintegrating 4 mg PO Q6H PRN (Reason: Nausea) Discontinued diazepam 2 mg tablet 2 mg PO TID PRN (Reason: Anxiety) Discharge Orders: Discharge Order (Routine); Ordered 08/01/24 Ordered By: Kenia Holloway Admission Data Admit Date/Time: 07/30/24 18:49 Attending Provider: Colleen Parmar Admit Provider: Scooby Worley Primary Care Provider: Kimi Sullivan Other Providers: Scooby Worley Other Interventions: Discharge Summary Assessment (RN) Last Done: 08/01/24 14:11 Hospital Stay Data Consultations 07/30/24 17:37 ED Decision to Admit Stat Diagnostic Imagining Performed Chest X-Ray 07/30/24 16:00 EXAM: Radiograph of the Chest 1 View INDICATION: Shortness of breath. TECHNIQUE: Frontal view of the chest. COMPARISON: CT chest 06/25/2024 and chest radiograph 09/24/2023 FINDINGS: Lungs and pleural spaces: Slight increased density noted in the medial right lung base may reflect a groundglass infiltrate. No pleural effusion or pneumothorax. Heart: Shape and configuration within normal limits allowing for technique. Mediastinum: Normal contour. Bones/joints: No fracture, erosion or dislocation. Soft tissues: No abnormality noted. No radiopaque foreign body noted. Upper abdomen: No abnormality noted. IMPRESSION: Possible groundglass infiltrate in the medial right lung base. Pneumonia not excluded. ACT 112: Negative or not required by law. Electronically signed by Aislinn Soares 07-30-2024 4:40 PM Pending Results Patient Have Any Pending Studies at Discharge: No Discharge Instructions Given to Patient (Per Discharging Provider) Ms. Caballero, You were hospitalized after having shortness of breath, found to be from RSV and asthma exacerbation. You have improved with steroids, nebulizer treatments and oxygen. You had a two-step with respiratory therapy done to qualify you for home oxygen that recommended 2 L of oxygen at rest and 3 L of oxygen with activity. You have been weaning down the oxygen during your stay. I suspect that you will only need this oxygen for a few weeks, your PCP can repeat a walking test at your follow-up visit to decide if you still need the oxygen. Use your pulse oximeter at home to monitor your oxygen saturations goal to have them between 90 to 94%, if they are routinely above 94% you can continue to wean down the oxygen. Continue to take Mucinex 1200 mg twice a day until you are feeling better. I have sent in a prescription for this but is also [id number] if your i nsurance does not pay for it please pick it up [id number]. Generic brand works just as well. I have also sent in prednisone for you to take please follow the instructions on the bottle. Continue to use your rescue inhaler at home as needed. Continue to use the incentive spirometer that you were provided at the hospital. Anything you can do to cut back or quit smoking is going to help your overall breathing. Activity: You can do normal everyday activities as your body allows. Take rest breaks if you feel tired. Do not overexert. Stop activity if you have pain, shortness of breath or feel dizzy. Follow-up appointments: Make an appointment with your primary care physician within one week of discharge. A copy of this summary will be sent to them. Every time you see your primary care physician, or any other doctor, bring your medication list, and a list of questions. CONTACT YOUR PRIMARY CARE PROVIDER if you experience any of the following: Shortness of breath or difficulty breathing Fevers or chills Feeling tired with normal activity or experiencing dizziness or fainting Difficulty following your treatment plan, or difficulty taking medications CALL 911 OR GO TO THE EMERGENCY DEPARTMENT if you experience any of the following: Severe abdominal pain or nausea/vomiting Severe chest pain, or chest pain that radiates (moves) to your jaw or arm Sudden, severe shortness of breath or difficulty breathing Thank you for allowing us to participate in your care. Supervising Physician Co-Signing Physician Notes PA Supervision Note: I did not personally see or examine the patient today, but I verified all curran points of JELENA Holloway's assessment and plan with the following exceptions/additions: None Total Time Total Time Spent Total Time Spent (In Minutes): Time spent day of discharge 35 minutes including direct patient care, medication reconciliation, documentation, review of labs and images, and coordination of care. Coding Level of Care Code 45270 INP/OBS DISCH >30 MIN Diagnoses Respiratory syncytial virus (RSV) as cause of acute bronchitis J20.5 RSV infection type: acute bronchitis Acute hypoxic respiratory failure J96.01
--- NOTE | 2024-08-01 22:20 | Electrocardiogram Report ---
Test Reason : Blood Pressure : */* mmHG Vent. Rate : 81 BPM Atrial Rate : 81 BPM P-R Int : 138 ms QRS Dur : 88 ms QT Int : 372 ms P-R-T Axes : 85 99 -24 degrees QTcB Int : 432 ms Normal sinus rhythm Biatrial enlargement Rightward axis Abnormal ECG When compared with ECG of 24-Sep-2023 13:43, T wave inversion more evident in Inferolateral leads Confirmed by Maurizio Raya ([id number]) on 08/01/2024 10:20:06 PM Referred By: REFERRED SELF Confirmed By: Maurizio Raya
--- NOTE | 2024-08-01 22:24 | Electrocardiogram Report ---
Test Reason : Blood Pressure : */* mmHG Vent. Rate : 91 BPM Atrial Rate : 91 BPM P-R Int : 142 ms QRS Dur : 94 ms QT Int : 360 ms P-R-T Axes : 79 83 -58 degrees QTcB Int : 442 ms Sinus rhythm with occasional Premature ventricular complexes Nonspecific ST and T wave abnormality Abnormal ECG When compared with ECG of 30-Jul-2024 15:59, Premature ventricular complexes are now Present Confirmed by Maurizio Raya ([id number]) on 08/01/2024 10:23:41 PM Referred By: REFERRED SELF Confirmed By: Maurizio Raya
== END 2024-08-01 14:43 | disposition home or self-care (01) | DRG 202 ==
LOC: ED 15:38 → 3N 18:49 → SUATTDRO 18:49 → 3N 19:40